=== PATIENT | female | born 1975 | race Caucasian/White ===

== ENCOUNTER 2017-01-04 21:47 | Emergency (ER) | payer BC ==
[2017-01-04] MEDS ORDERED: Ketorolac Tromethamine 30 MG/ML VIAL ONE (22:09)
[2017-01-04] MEDS ORDERED: Ondansetron HCl/PF 4 MG/2 ML Vial ONE (22:09)
[2017-01-04 22:38] LABS: #Basophils 0.1 thou/uL (0.0-0.2); #Eosinphils 0.2 thou/uL (0.0-0.7); #Lymphocytes 2.6 thou/uL (1.20-3.40); #Monocytes 0.5 thou/uL (0.11-0.59); #Neutrophils 5.6 thou/uL (1.40-6.50); %Basophils 0.9 % (0.0-1.0); %Eosinophils 2.7 % (0.0-10.0); %Lymphocytes 29.2 % (21.0-51.0); %Monocytes 5.2 % (0.0-10.0); Hematocrit 49.9 % (36.0-47.0); Mean Platelet Volume 7.3 fL (7.4-10.4); Red Blood Cell (RBC) Count 5.43 mill/uL (4.20-5.40)
[2017-01-04 22:46] LABS: ALT (SGPT) 34 U/L (8-55); AST (SGOT) 28 U/L (5-34); Alkaline Phosphatase 49 U/L (40-150); Anion Gap 15 mmol/L (10-20); BUN (Urea Nitrogen) 19 mg/dL (7.0-18.7); Bilirubin, Total 0.6 mg/dL (0.2-1.2); Calc. Creatinine Clearance 0 mL/min (70-130); Calcium 8.8 mg/dL (7.8-10.44); Carbon Dioxide 22 mmol/L (22-29); Chloride 109 mmol/L (98-107); Estimated GFR-MDRD 48; Globulin 2.9 g/dL (2.4-3.5); Protein, Total 6.7 g/dL (6.0-8.3)
[2017-01-04 23:41] LABS: Bilirubin Negative (Negative); Blood, Urine Small (Negative); Glucose, Urine (Dipstick) Negative (Negative); Ketone, Urine 15 mg/dL (Negative); Nitrite Negative (Negative); Protein, Urine (Dipstick) Negative (Neg-Trace); Urobilinogen 0.2 mg/dL (0.2-1.0)
[2017-01-04 23:45] LABS: Bacteria/HPF 1+ HPF (None Seen); Hyaline Casts/LPF 0-3 HYALINE CAST LPF (0-3 Hyaline); RBC/HPF 0-3 HPF (0-3); WBC/HPF 0-3 HPF (0-3)
[2017-01-05] MEDS ORDERED: Ondansetron HCl/PF 4 MG/2 ML Vial ONE (00:37)
--- NOTE | 2017-01-05 07:58 | CT ---
PRELIMINARY REPORT/[facility]/EMERGENCY AFTER HOURS PROCEDURE: EXAM: CT Abdomen and Pelvis Without Intravenous Contrast EXAM DATE/TIME: Exam ordered 01/05/2017 12:11 AM CLINICAL HISTORY: 41 years old, female; Pain; Abdominal pain; Flank; Right; Patient HX: Right flank and back pain for 2 weeks, hematuria. Hs of stone with litho and stent 15 years ago. Hs of tubal TECHNIQUE: Axial computed tomography images of the abdomen and pelvis without intravenous contrast. All CT scan s at this facility use one or more dose reduction techniques, viz.: automated exposure control; ma/k V adjustment per patient size (including targeted exams where dose is matched to indication; i.e. he ad); or iterative reconstruction technique. Coronal reformatted images were created and reviewed. COMPARISON: No relevant prior studies available. FINDINGS: Lower thorax: No acute findings. ABDOMEN: Liver: Unremarkable. Gallbladder and bile ducts: Unremarkable. No calcified stones. No ductal dilation. Pancreas: Unremarkable. No ductal dilation. Spleen: Unremarkable. No splenomegaly. Adrenals: Unremarkable. No mass. Kidneys and ureters: 7 mm obstructing stone in the proximal right ureter causing moderate obstructiv e uropathy. Stomach and bowel: Colonic diverticulosis. No diverticulitis. No obstruction. Appendix: Normal appendix. PELVIS: Bladder: Unremarkable. No stones. Reproductive: Unremarkable as visualized. ABDOMEN and PELVIS: Intraperitoneal space: Unremarkable. No free air. No significant fluid collection. Bones/joints: No acute fracture. No dislocation. Soft tissues: Unremarkable. Vasculature: Unremarkable. No abdominal aortic aneurysm. Lymph nodes: Unremarkable. No enlarged lymph nodes. IMPRESSION: 7 mm obstructing stone in the proximal right ureter causing moderate obstructive uropathy. Thank you for allowing us to participate in the care of your patient. Dictated and Authenticated by: Kings Castillo MD 01/05/2017 12:30 AM Central Time ([place] \T\ [place]) FINAL REPORT EMERGENT AFTER HOURS NONCONTRAST CT ABDOMEN AND PELVIS: DATE: 01/05/17. HISTORY: Intermittent back pain for 2 weeks. The patient complains of right flank and lower abdominal pain. IMPRESSION: 1. Partially obstructing 7 mm calculus proximal right ureter resulting in moderate right hydronephr osis. There is mild right perinephric stranding. 2. No left renal or ureteral calculus is present. 3. No CT evidence of appendicitis. 4. Prominent degenerative changes at the lumbosacral junction. 5. Findings are in agreement with the preliminary report by [facility]. POS: [facility]
== END 2017-01-05 02:34 | disposition home or self-care (01) ==
LOC: SCSER 21:47
DX: N13.2 Hydronephrosis with renal and ureteral calculous obstruction (principal); F32.9 Major depressive disorder, single episode, unspecified
CPT/HCPCS: 74176; 80053; 81003; 81015; 84703; 85025; 96361; 96374; 96375; 96376; J1885; J2270; J2405

== ENCOUNTER 2017-01-17 12:10 | Outpatient (CLI) | payer BC ==
[2017-01-17 13:47] LABS: Anion Gap 14 mmol/L (10-20); BUN (Urea Nitrogen) 16 mg/dL (7.0-18.7); Calc. Creatinine Clearance 0 mL/min (70-130); Calcium 8.7 mg/dL (7.8-10.44); Carbon Dioxide 24 mmol/L (22-29); Chloride 107 mmol/L (98-107); Estimated GFR-MDRD 62
--- NOTE | 2017-01-17 15:35 | RAD ---
TWO VIEW CHEST: History: Pre-operative evaluation. FINDINGS: Lungs are clear. Heart and mediastinum are unremarkable. Osseous structures are unremarkable. IMPRESSION: No acute finding. POS: [facility]
[2017-01-17 18:18] LABS: Bilirubin Negative (Negative); Blood, Urine Large (Negative); Glucose, Urine (Dipstick) Negative (Negative); Ketone, Urine Negative (Negative); Nitrite Negative (Negative); Protein, Urine (Dipstick) Negative (Neg-Trace); Urobilinogen 0.2 mg/dL (0.2-1.0)
[2017-01-17 18:21] LABS: Bacteria/HPF None Seen HPF (None Seen); Hyaline Casts/LPF 0-3 HYALINE CAST LPF (0-3 Hyaline); RBC/HPF 21-50 HPF (0-3); Squamous Epithelial 0-3 HPF (0-3); WBC/HPF 0-3 HPF (0-3)
--- NOTE | 2017-01-19 15:59 | EKG ---
Test Reason : Blood Pressure : / mmHG Vent. Rate : 061 BPM Atrial Rate : 061 BPM P-R Int : 148 ms QRS Dur : 078 ms QT Int : 426 ms P-R-T Axes : 036 056 004 degrees QTc Int : 428 ms Normal sinus rhythm with sinus arrhythmia Cannot rule out Inferior infarct , age undetermined Abnormal ECG No previous ECGs available Confirmed by DR. Zahida LU ([id number]) on 01/19/2017 3:59:16 PM Referred By: SANIA Confirmed By:DR. Zahida LU
== END 2017-01-17 12:11 | disposition home or self-care (01) ==
LOC: LABBT 12:10
PROVIDERS: ATTEND Urology
DX: Z87.440 Personal history of urinary (tract) infections (principal)
CPT/HCPCS: 71020; 80048; 81001; 93005; 93010

== ENCOUNTER 2017-06-26 15:32 | Outpatient (CLI) | payer BC ==
--- NOTE | 2017-06-26 15:58 | RAD ---
KUB: COMPARISON: 01/23/17. FINDINGS: A single view of the abdomen shows a nonobstructed bowel gas pattern. A phlebolith is seen in the pe lvis. No suspicious calcifications are seen over either kidney. IMPRESSION: Nonobstructed bowel gas pattern. POS: [facility]
== END 2017-06-26 15:33 | disposition home or self-care (01) ==
LOC: RAD 15:32
PROVIDERS: ATTEND Urology
DX: N13.2 Hydronephrosis with renal and ureteral calculous obstruction (principal)
CPT/HCPCS: 74018

== ENCOUNTER 2017-09-20 07:50 | Outpatient (CLI) | payer BC | END 2017-09-20 07:51 | disposition home or self-care (01) | LOC: BICMAMMO 07:50 | PROVIDERS: ATTEND Internal Medicine | DX: Z12.31 Encounter for screening mammogram for malignant neoplasm of breast (principal) | CPT/HCPCS: 77063; 77067 ==

== ENCOUNTER 2017-11-16 16:45 | Outpatient (CLI) | payer BC ==
--- NOTE | 2017-11-16 17:13 | RAD ---
PA AND LATERAL CHEST: Date: 11/16/17 INDICATION: Preop. COMPARISON: Prior exam dated 01/17/17. FINDINGS: Lungs are clear. Cardiomediastinal silhouette is within normal limits. No acute osseous abnormality i s evident. IMPRESSION: No acute cardiopulmonary abnormality. POS: [facility]
[2017-11-16 17:36] LABS: #Eosinphils 0.2 thou/uL (0.0-0.7); #Monocytes 0.4 thou/uL (0.11-0.59); #Neutrophils 3.5 thou/uL (1.40-6.50); %Basophils 0.4 % (0.0-1.0); %Eosinophils 3.2 % (0.0-10.0); %Lymphocytes 32.3 % (21.0-51.0); %Monocytes 6.5 % (0.0-10.0); %Neutrophils 57.7 % (42.0-75.0); Hemoglobin 14.1 g/dL (12.0-16.0); Mean Corpuscular HGB CONC 34.2 g/dL (32.0-36.0); Mean Corpuscular Hemoglobin 31.3 pg (27.0-31.0); Mean Corpuscular Volume 91.4 fL (78.0-98.0); Mean Platelet Volume 8.2 fL (7.4-10.4); Platelet Count 159 thou/uL (130-400); RBC Distribution Width 11.8 % (11.5-14.5); Red Blood Cell (RBC) Count 4.51 mill/uL (4.20-5.40)
[2017-11-16 17:44] LABS: BHCG - Serum Negative (NEGATIVE); Pregs Control Background? CLEAR/WHITE (CLR/WHITE); Pregs Control Bar Appear? YES (CONTROL BAR)
[2017-11-16 17:46] LABS: Hemoglobin A1c 5.1 % (4.0-6.0)
[2017-11-16 18:02] LABS: ALT (SGPT) 51 U/L (8-55); AST (SGOT) 42 U/L (5-34); Albumin 3.8 g/dL (3.5-5.0); Alkaline Phosphatase 46 U/L (40-150); Anion Gap 13 mmol/L (10-20); BUN (Urea Nitrogen) 23 mg/dL (7.0-18.7); Bilirubin, Direct 0.3 mg/dL (0.1-0.3); Bilirubin, Total 0.7 mg/dL (0.2-1.2); Calc. Creatinine Clearance 0 mL/min (70-130); Calcium 8.9 mg/dL (7.8-10.44); Carbon Dioxide 23 mmol/L (22-29); Chloride 105 mmol/L (98-107); Estimated GFR-MDRD 64; Glucose 81 mg/dL (70-105); Protein, Total 5.8 g/dL (6.0-8.3); Sodium 137 mmol/L (136-145)
--- NOTE | 2017-11-20 13:42 | EKG ---
Test Reason : Blood Pressure : / mmHG Vent. Rate : 067 BPM Atrial Rate : 067 BPM P-R Int : 142 ms QRS Dur : 078 ms QT Int : 416 ms P-R-T Axes : 037 054 024 degrees QTc Int : 439 ms Normal sinus rhythm Low voltage QRS Borderline ECG Confirmed by CATHERINE ENCARNACION ([id number]) on 11/20/2017 1:41:52 PM Referred By: AUREA Confirmed By:CATHERINE ENCARNACION
== END 2017-11-16 16:46 | disposition home or self-care (01) ==
LOC: LABBT 16:45
PROVIDERS: ATTEND Surgery
DX: Z01.818 Encounter for other preprocedural examination (principal); E66.01 Morbid (severe) obesity due to excess calories
CPT/HCPCS: 71046; 80053; 80076; 83036; 84703; 85025; 93005; 93010

== ENCOUNTER 2017-11-16 17:15 | Inpatient (IN) | payer BC ==
[2017-11-16 17:33] VITALS: BMI 41.8
[2017-11-22] MEDS ORDERED: Bupivacaine/Epinephrine 0.25% 30 ML VIAL ONE (06:24)
[2017-11-22] MEDS ORDERED: CEFAZOLIN/Water 2 GM/20 ML SYRINGE ONE (06:40)
[2017-11-22] MEDS ORDERED: Heparin 5,000 UNITS/ML VIAL ONE (06:40)
[2017-11-22] MEDS ORDERED: Midazolam HCl 2 mg/2 ml Vial ONE ×2 (07:18→07:20)
[2017-11-22] MEDS ORDERED: Fentanyl 100 MCG/2 ML VIAL ONE (07:20)
[2017-11-22] MEDS ORDERED: HYDROmorphone 2 MG/ML VIAL ONE (07:20)
[2017-11-22] MEDS ORDERED: diphenhydrAMINE 50 MG/ML VIAL IVP PRN ×2 (07:26→09:02)
[2017-11-22] MEDS ORDERED: Promethazine HCl 25 MG/ML VIAL SLOW IVP PRN (07:26)
[2017-11-22] MEDS ORDERED: HYDROmorphone 10 mg/100 ml CADD IVPB PRN (07:26)
[2017-11-22] MEDS ORDERED: Promethazine HCl 25 MG/ML VIAL IM PRN ×3 (07:26→09:02)
[2017-11-22] MEDS ORDERED: diphenhydrAMINE 25 MG CAP PO PRN (07:26)
[2017-11-22] MEDS ORDERED: HYDROmorphone 2 MG/ML VIAL SLOW IVP PRN (07:26)
[2017-11-22] MEDS ORDERED: Naloxone HCl 0.4 mg/ml Vial IV PRN (07:26)
[2017-11-22] MEDS ORDERED: diphenhydrAMINE 50 MG/ML VIAL IM PRN (07:26)
[2017-11-22] MEDS ORDERED: Zolpidem Tartrate 5 MG TAB PO PRN (07:26)
[2017-11-22] MEDS ORDERED: Meperidine HCl/PF 25 MG/ML VIAL SLOW IVP PRN (07:26)
[2017-11-22] MEDS ORDERED: Ondansetron HCl/PF 4 MG/2 ML Vial IVP PRN ×3 (07:26→09:02)
[2017-11-22] MEDS ORDERED: Communication Order-Pharmacy FS SCH (07:30)
[2017-11-22] MEDS ORDERED: Hydrocodone-Acetamin 15 ML UDCUP PO PRN (09:02)
[2017-11-22] MEDS ORDERED: hydrALAZINE 20 MG/ML VIAL SLOW IVP PRN (09:02)
[2017-11-22] MEDS ORDERED: Dextrose 50% Abboject 50 ML SYRINGE SLOW IVP PRN (09:02)
[2017-11-22] MEDS ORDERED: Dextrose 5% in Water 1,000 ML IV PRN (09:02)
[2017-11-22] MEDS ORDERED: D5 1/2 NS w/20 mEq KCL 1,000 ML ONE (09:33)
[2017-11-22] MEDS ORDERED: Ondansetron HCl/PF 4 MG/2 ML Vial ONE (09:55)
--- NOTE | 2017-11-22 10:50 | OP ---
DATE OF PROCEDURE: 11/22/2017 PREOPERATIVE DIAGNOSIS: Morbid obesity. SURGEON: Christiano Paulson M.D. PROCEDURE: Laparoscopic sleeve gastrectomy, esophagogastroscopy. INDICATIONS: This is a 42-year-old female, morbidly obese, who has attempted multiple weight loss pr ograms without success. FINDINGS: A 38 Setswana bougie used. PROCEDURE IN DETAIL: After informed consent was obtained, patient was taken to the operating room an d given general endotracheal anesthesia, placed in the supine position. The abdomen was prepped and draped in usual fashion. Local anesthesia infiltrated subcutaneously and deep. A 12 mm incision was performed approximately 8 inches below the xiphoid slightly to the left. Veress needle inserted. D rop test performed. Pneumoperitoneum was created to a volume of 2 liters of carbon dioxide. Utilizi ng a bladeless 12 mm trocar and 0 degree laparoscope, direct visual entry in the abdominal cavity was performed. Pneumoperitoneum was created to a pressure of 15 mmHg. Zero-degree laparoscope inserted . The patient placed in steep reverse Trendelenburg position. Nathansen liver retractor inserted. Left lobe of liver retracted superiorly. The pylorus identified. A 12 mm port placed on the right b eneath it and two 12s placed left subcostal. The omentum was taken off the greater curvature 5 cm fr om the pylorus utilizing the LigaSure. Short gastrics divided with the LigaSure. Left crura defined with the LigaSure. A 38-Setswana bougie inserted and directed into the antrum. Linear 60 mm green lo ad stapler used to divide the antrum to the bougie, gold load along the bougie, and a series of blues through the angle of His. Intraoperative endoscopy was performed. The video endoscope inserted und er direct vision and advanced into the sleeve. Staple line inspected. There was no bleeding. Stapl e line then tested by inflating the new stomach with pressurized air under water. There was no air l eak. Stomach decompressed. Scope removed. The remnant stomach removed from the abdomen through the left lateral port site. The fascia closed with 0 Vicryl suture and the GraNee needle. Trocars and retractors were removed. On the right side, there was also some bleeding, so again the fascia closed with 0 Vicryl suture and the GraNee needle. Hemostasis assured. Skin closed with interrupted 4-0 R apide. Steri-Strips applied. Sterile bandage applied. The patient tolerated the procedure well and was transferred to recovery in good condition. Sponge and needle count verified correct x2.
[2017-11-22] MEDS ORDERED: Acetaminophen 1,000 MG in Premix Bag 1 BAG IVPB SCH (12:00)
[2017-11-22] MEDS: CEFAZOLIN/Water 2 GM/20 ML SYRINGE SLOW IVP SCH ×2 (14:20→23:23)
[2017-11-22] MEDS: Ketorolac Tromethamine 30 MG/ML VIAL IVP SCH ×2 (14:20→21:16)
[2017-11-22] MEDS: Acetaminophen 1,000 MG in Premix Bag 1 BAG IVPB SCH ×2 (14:20→21:53)
[2017-11-22] MEDS: D5 1/2 NS w/20 mEq KCL 1,000 ML IV SCH ×2 (18:06→21:20)
[2017-11-23] MEDS: D5 1/2 NS w/20 mEq KCL 1,000 ML IV SCH ×3 (02:14→13:08)
[2017-11-23] MEDS: Ketorolac Tromethamine 30 MG/ML VIAL IVP SCH ×2 (02:21→08:17)
[2017-11-23 05:18] LABS: #Monocytes 0.5 thou/uL (0.11-0.59); #Neutrophils 11.3 thou/uL (1.40-6.50); %Basophils 0.1 % (0.0-1.0); %Lymphocytes 8.1 % (21.0-51.0); %Monocytes 3.6 % (0.0-10.0); %Neutrophils 88.2 % (42.0-75.0); Hemoglobin 13.3 g/dL (12.0-16.0); Mean Corpuscular HGB CONC 34.3 g/dL (32.0-36.0); Mean Corpuscular Hemoglobin 31.6 pg (27.0-31.0); Mean Corpuscular Volume 92.2 fL (78.0-98.0); Mean Platelet Volume 9.1 fL (7.4-10.4); Platelet Count 184 thou/uL (130-400); RBC Distribution Width 11.8 % (11.5-14.5); Red Blood Cell (RBC) Count 4.21 mill/uL (4.20-5.40); White Blood Cell (WBC) Count 12.9 thou/uL (4.8-10.8)
[2017-11-23 05:25] LABS: Anion Gap 11 mmol/L (10-20); BUN (Urea Nitrogen) 11 mg/dL (7.0-18.7); Calc. Creatinine Clearance 130 mL/min (70-130); Calcium 8.5 mg/dL (7.8-10.44); Carbon Dioxide 23 mmol/L (22-29); Chloride 109 mmol/L (98-107); Estimated GFR-MDRD 55; Glucose 131 mg/dL (70-105); Potassium 4.7 mmol/L (3.5-5.1); Sodium 138 mmol/L (136-145)
[2017-11-23] MEDS ORDERED: Enoxaparin Sodium 40 MG/0.4 ML SYRINGE SC SCH (06:00)
[2017-11-23] MEDS ORDERED: Hydrocodone-Acetamin 15 ML UDCUP PO PRN (08:16)
[2017-11-23] MEDS: Acetaminophen 1,000 MG in Premix Bag 1 BAG IVPB SCH (08:31)
[2017-11-23] MEDS ORDERED: Pantoprazole 40 MG VIAL IVP SCH (09:00)
--- NOTE | 2017-11-23 09:20 | RAD ---
UPPER GI SINGLE CONTRAST: Date: 11/23/17 HISTORY: 42-year-old female, recent status post gastric bypass and vertical sleeve. TECHNIQUE/FINDINGS: Fluoroscopy time: 0.4 minutes. Dose: 40.22 mGy*cm^2. The patient swallowed 15 mL Gastrografin orally in the upright position. Contrast media passed readil y through the distal esophagus and into the postoperative stomach, with emptying into the duodenum. N o evidence for extravasation. IMPRESSION: No obstruction or extravasation. POS: [facility]
[2017-11-23 11:22] VITALS: BP 99/63; TEMP 98.3
--- NOTE | 2017-11-23 20:22 | DIS ---
DISCHARGE DIAGNOSIS: Morbid obesity. PROCEDURES DURING ADMISSION: Laparoscopic sleeve gastrectomy, intraoperative esophagogastroscopy, po stoperative Gastrografin swallow. HOSPITAL COURSE: The patient was admitted, taken to the operating room where she underwent sleeve ga strectomy. Postoperatively, she has done well. The swallow was fine. She was started on liquid. S he is tolerating well. She is discharged home on hydrocodone and Zofran. She will follow up with me in 2 weeks.
[2017-11-24] MEDS ORDERED: Enoxaparin Sodium 40 MG/0.4 ML SYRINGE SC SCH (09:00)
== END 2017-11-23 13:20 | disposition home or self-care (01) | DRG 621 ==
LOC: SURG A 11-22 05:32
PROVIDERS: ADMIT Surgery; ATTEND Surgery
PROC: 0DB64Z3 Excision of Stomach, Percutaneous Endoscopic Approach, Vertical (ICD-10-PCS; principal; 2017-11-22)
DX: E66.01 Morbid (severe) obesity due to excess calories (principal); Z68.41 Body mass index [BMI] 40.0-44.9, adult
CPT/HCPCS: 36415; 74241; 80048; 85025; 88307; 88312; 94760; C9113; J0131; J1170; J1644; J1650; J1885; J2250; J2405; J2550; J3010

== ENCOUNTER 2017-12-04 18:02 | Day surgery (SDC) | payer BC ==
[2017-12-04] MEDS ORDERED: Multivit, Adult Inj 10 ML VIAL ONE (18:34)
== END 2017-12-04 22:00 | disposition home or self-care (01) ==
LOC: SCSER/OP 18:02
PROVIDERS: ATTEND Emergency Medicine
DX: K95.89 Other complications of other bariatric procedure (principal)

== ENCOUNTER → 2017-12-07 | Day surgery (SDC) | payer BC ==
[~2017-12-07] MED LIST: Multivit, Adult Inj 10 ML VIAL ONE
== END ==
LOC: SCSER/OP 16:56
PROVIDERS: ATTEND Surgery
DX: Z29.8 Encounter for other specified prophylactic measures (principal); Z98.84 Bariatric surgery status; Z79.899 Other long term (current) drug therapy

== ENCOUNTER → 2017-12-14 | Day surgery (SDC) | payer BC ==
[~2017-12-14] MED LIST changes: +Ondansetron HCl/PF 4 MG/2 ML Vial ONE
== END ==
LOC: SCSER/OP 17:28
PROVIDERS: ATTEND Surgery
DX: Z29.8 Encounter for other specified prophylactic measures (principal)
CPT/HCPCS: J2405

== ENCOUNTER 2017-12-16 15:55 | Inpatient (IN) | payer BC ==
[~2017-12-16 15:55] MED LIST changes: +ISOVUE-370 76%-LOCM 1 ML ONE; -Multivit, Adult Inj 10 ML VIAL ONE; -Ondansetron HCl/PF 4 MG/2 ML Vial ONE
[2017-12-16] MEDS ORDERED: Morphine 4 MG/ML VIAL ONE (16:42)
[2017-12-16] MEDS ORDERED: Ondansetron PF 4 MG/2 ML Vial ONE (16:42)
[2017-12-16 16:58] LABS: BHCG - Serum Negative (NEGATIVE); Pregs Control Background? CLEAR/WHITE (CLR/WHITE); Pregs Control Bar Appear? YES (CONTROL BAR)
[2017-12-16 17:02] LABS: #Basophils 0.1 thou/uL (0.0-0.2); #Eosinphils 0.1 thou/uL (0.0-0.7); #Lymphocytes 1.2 thou/uL (1.20-3.40); #Monocytes 0.8 thou/uL (0.11-0.59); #Neutrophils 5.8 thou/uL (1.40-6.50); %Basophils 0.9 % (0.0-1.0); %Eosinophils 1.5 % (0.0-10.0); %Lymphocytes 14.8 % (21.0-51.0); %Monocytes 9.6 % (0.0-10.0); %Neutrophils 73.3 % (42.0-75.0); Hemoglobin 14.3 g/dL (12.0-16.0); Mean Corpuscular HGB CONC 33.6 g/dL (32.0-36.0); Mean Corpuscular Hemoglobin 29.2 pg (27.0-31.0); Mean Platelet Volume 10.2 fL (7.4-10.4); PLT Morphology Comment Appears Adequate; Platelet Count 114 thou/uL (130-400); RBC Distribution Width 10.7 % (11.5-14.5); Red Blood Cell (RBC) Count 4.88 mill/uL (4.20-5.40)
[2017-12-16 17:08] LABS: ALT (SGPT) 29 U/L (8-55); AST (SGOT) 33 U/L (5-34); Alkaline Phosphatase 65 U/L (40-150); Anion Gap 18 mmol/L (10-20); BUN (Urea Nitrogen) 10 mg/dL (7.0-18.7); CK (CPK) 90 U/L (29-168); Calc. Creatinine Clearance 0 mL/min (70-130); Calcium 9.3 mg/dL (7.8-10.44); Carbon Dioxide 21 mmol/L (22-29); Chloride 106 mmol/L (98-107); Estimated GFR-MDRD 77; Globulin 3.3 g/dL (2.4-3.5); Glucose 101 mg/dL (70-105); Lipase 33 U/L (8-78); Potassium 3.7 mmol/L (3.5-5.1); Protein, Total 7.3 g/dL (6.0-8.3); Sodium 141 mmol/L (136-145)
--- NOTE | 2017-12-16 19:52 | CT ---
CT ABDOMEN WITH CONTRAST CT PELVIS WITH CONTRAST: DATE: 12-16-17 TIME: 6:44 p.m. HISTORY: [id number] with abdominal pain, nausea, and emesis. Status post vertical sleeve gastrectomy [address] Silvestre reported the findings by telephone to Dr. Issac Trejo of the [facility] Emergency Department at 6:52 p.m. on 12-16-17. The patient was scanned at the [facility] in [place] because the CT scanner is malfunctioning in [facility]. At 6:58 p.m., the Dr. Silvestre discussed the findings with Dr. Mead of the Emergency Department at the [facility], as the patient was en route to this ED. TECHNIQUE: IV injection of iodinated contrast media: 100 ml Isovue 370 Oral contrast media: PO Isovue COMPARISON: None. FINDINGS: There is no IV contrast material in the portal vein, superior mesenteric vein, or splenic vein. The b ranches of the superior mesenteric vein are also unopacified. There is edema at the trevor hepatis and mild edema posterior to the pancreas, and in the adjacent mesentery inferior to this. Mesenteric lym ph nodes centrally are enlarged. There is a suture line along narrowed gastric channel. The enhancement of the liver is heterogeneous, with large regions of moderately low attenuation, representing perfusion abnormality due to the port al vein thrombosis. There is splenomegaly. The bilateral kidneys, abdominal aorta, adrenals, urinary bladder and appendix are normal. The cecum is located superiorly in the right upper quadrant, and consequently the normal appendix is in Emmanuel's pouch rather than at the right lower quadrant. The body of the pancreas is mildly anteriorly displaced by the adjacent splenic vein thrombosis and enlargement. No definite galdino dence of acute pancreatitis. There is a small amount of free fluid in the cul-de-sac in the pelvis. N o colonic diverticulitis. No small bowel dilation. Lung bases are grossly clear. No pneumoperitoneum. IMPRESSION: 1. Acute portal vein thrombosis and occlusion, 2. with contiguous thrombosis and occlusion of the splenic vein and superior mesenteric vein, 3. and associated splenomegaly due to the resulting portal venous hypertension. 4. Associated perfusion abnormality of large regions of the liver. 5. Status post vertical sleeve gastrectomy JN R POS: [facility]
[2017-12-16] MEDS ORDERED: Enoxaparin Sodium 30 MG/0.3 ML SYRINGE ONE (19:58)
[2017-12-16] MEDS ORDERED: Enoxaparin Sodium 100 MG/ML SYRINGE ONE (19:58)
[2017-12-16 20:44] LABS: INR-International Normal Ratio 1.3; PTT 31.6 SEC (22.9-36.1); Prothrombin Time 16.2 SEC (12.0-14.7)
[2017-12-16 20:58] LABS: ALT (SGPT) 24 U/L (8-55); AST (SGOT) 26 U/L (5-34); Albumin 3.6 g/dL (3.5-5.0); Alkaline Phosphatase 62 U/L (40-150); Anion Gap 13 mmol/L (10-20); BUN (Urea Nitrogen) 10 mg/dL (7.0-18.7); Calc. Creatinine Clearance 0 mL/min (70-130); Calcium 8.7 mg/dL (7.8-10.44); Carbon Dioxide 24 mmol/L (22-29); Chloride 105 mmol/L (98-107); Estimated GFR-MDRD 78; Globulin 3.1 g/dL (2.4-3.5); Glucose 86 mg/dL (70-105); Lipase 31 U/L (8-78); Potassium 3.9 mmol/L (3.5-5.1); Protein, Total 6.7 g/dL (6.0-8.3); Sodium 138 mmol/L (136-145)
[2017-12-16 20:59] LABS: #Eosinphils 0.1 thou/uL (0.0-0.7); #Lymphocytes 1.4 thou/uL (1.20-3.40); #Monocytes 0.6 thou/uL (0.11-0.59); #Neutrophils 4.1 thou/uL (1.40-6.50); %Basophils 0.5 % (0.0-1.0); %Eosinophils 1.3 % (0.0-10.0); %Monocytes 9.7 % (0.0-10.0); %Neutrophils 65.5 % (42.0-75.0); Hemoglobin 13.5 g/dL (12.0-16.0); Mean Corpuscular HGB CONC 32.5 g/dL (32.0-36.0); Mean Corpuscular Volume 92.2 fL (78.0-98.0); Mean Platelet Volume 8.9 fL (7.4-10.4); Platelet Count 110 thou/uL (130-400); RBC Distribution Width 11.6 % (11.5-14.5); Red Blood Cell (RBC) Count 4.51 mill/uL (4.20-5.40); White Blood Cell (WBC) Count 6.2 thou/uL (4.8-10.8)
[2017-12-16] MEDS ORDERED: Ondansetron ODT 4 MG TAB SL PRN (21:57)
[2017-12-16] MEDS ORDERED: Ondansetron PF 4 MG/2 ML Vial IVP PRN (21:57)
[2017-12-16] MEDS: Fentanyl 100 MCG/2 ML VIAL SLOW IVP PRN (22:22)
[2017-12-16] MEDS: Sodium Chloride 0.45% 1,000 ML IV SCH (23:44)
[2017-12-17] MEDS: Sodium Chloride 0.45% 1,000 ML IV SCH ×2 (04:26→06:34)
[2017-12-17] MEDS: Fentanyl 100 MCG/2 ML VIAL SLOW IVP PRN (05:37)
[2017-12-17 05:41] LABS: Lactic Acid 0.6 mmol/L (0.5-2.2)
[2017-12-17 05:44] LABS: Bilirubin Moderate (Negative); Blood, Urine Negative (Negative); Clarity CLEAR (Clear); Glucose, Urine (Dipstick) Negative (Negative); Leukocyte Negative (Negative); Nitrite Negative (Negative); Protein, Urine (Dipstick) Trace mg/dL (Neg-Trace)
[2017-12-17 05:44] LABS: ALT (SGPT) 20 U/L (8-55); AST (SGOT) 21 U/L (5-34); Albumin 3.2 g/dL (3.5-5.0); Alkaline Phosphatase 56 U/L (40-150); Anion Gap 11 mmol/L (10-20); BUN (Urea Nitrogen) 9 mg/dL (7.0-18.7); Bilirubin, Total 0.9 mg/dL (0.2-1.2); Calc. Creatinine Clearance 153 mL/min (70-130); Calcium 8.4 mg/dL (7.8-10.44); Carbon Dioxide 24 mmol/L (22-29); Chloride 106 mmol/L (98-107); Estimated GFR-MDRD 78; Globulin 2.7 g/dL (2.4-3.5); Glucose 82 mg/dL (70-105); Potassium 3.4 mmol/L (3.5-5.1); Protein, Total 5.9 g/dL (6.0-8.3); Sodium 138 mmol/L (136-145)
[2017-12-17 05:48] LABS: #Eosinphils 0.2 thou/uL (0.0-0.7); #Lymphocytes 1.9 thou/uL (1.20-3.40); #Monocytes 0.7 thou/uL (0.11-0.59); #Neutrophils 2.5 thou/uL (1.40-6.50); %Basophils 0.7 % (0.0-1.0); %Lymphocytes 35.7 % (21.0-51.0); %Monocytes 12.4 % (0.0-10.0); %Neutrophils 48.1 % (42.0-75.0); Mean Corpuscular Hemoglobin 29.7 pg (27.0-31.0); Mean Corpuscular Volume 92.7 fL (78.0-98.0); Mean Platelet Volume 8.9 fL (7.4-10.4); Platelet Count 97 thou/uL (130-400); RBC Distribution Width 11.6 % (11.5-14.5); Red Blood Cell (RBC) Count 4.03 mill/uL (4.20-5.40); White Blood Cell (WBC) Count 5.3 thou/uL (4.8-10.8)
[2017-12-17 06:13] LABS: Specific Gravity, Urine 1.051 (1.002-1.036)
[2017-12-17] MEDS ORDERED: Enoxaparin Sodium 120 MG/0.8 ML SYRINGE SC SCH (09:00)
[2017-12-17] MEDS ORDERED: Fentanyl 100 MCG/2 ML VIAL SLOW IVP PRN (09:11)
[2017-12-17] MEDS ORDERED: fentaNYL Citrate/PF 2,000 MCG in Sodium Chloride 0.9% 60 ML IV PRN (09:11)
[2017-12-17] MEDS: D5 1/2 NS w/20 mEq KCL 1,000 ML IV SCH ×2 (09:30→15:59)
--- NOTE | 2017-12-17 10:29 | ULT ---
ULTRASOUND WITH DOPPLER DUPLEX VENOUS LOWER EXTREMITY LEFT: HISTORY: A 42-year-old female with left lower extremity edema. TECHNIQUE: Color flow Doppler, spectral waveform analysis of pulsed Doppler, and gerardo-scale imaging with garcia eron and augmentation, were used to evaluate the left common femoral, femoral, popliteal, posterior t ibial, and superficial femoral, veins; and the proximal portions of the profunda femoral and greater saphenous, veins. FINDINGS: There is normal compressibility, demonstration of blood flow by color Doppler and pulsed Doppler, and response to augmentation, in all interrogated veins. IMPRESSION: Negative. No deep vein thrombosis in the left lower extremity. jn[] POS: [facility]
--- NOTE | 2017-12-17 11:10 | HP ---
CHIEF COMPLAINT: Abdominal pain, nausea, vomiting. HISTORY OF PRESENT ILLNESS: This is a 42-year-old female, who underwent sleeve gastrectomy on 2017. She had quite a bit of dysphagia, early on and had to come in for fluids through the urgent ca re 3 times. She came back again this weekend complaining of increasing mid epigastric and mid abdomi nal pain. She was dry heaving. She has had trouble with swallowing. Pain has been getting worse. In the ER, a CT scan was obtained that showed acute portal vein thrombosis, splenic vein thrombosis, and mesenteric vein thrombosis. PAST MEDICAL HISTORY: Significant for history of kidney stones, chronic renal insufficiency related to those renal stones, degenerative joint disease, ADHD. PAST SURGICAL HISTORY: Past surgeries include bilateral tubal ligation. She had ESWL in 1998. She has had a right ureteroscopy in 2017. FAMILY HISTORY: Her father of suicide. Her mother is alive, but has a history of DVT post post . SOCIAL HISTORY: No tobacco, rare alcohol. She is . ALLERGIES: She has no known drug allergies. MEDICATIONS: Include an extended amphetamine and MiraLax. PHYSICAL EXAMINATION: VITAL SIGNS: Her temperature is 98.2, pulse 78, blood pressure 100/68, O2 sat 92%. GENERAL: She is awake, alert, does not appear to be in any distress at this time. HEENT: No jaundice. LUNGS: Clear. HEART: Regular rate and rhythm. ABDOMEN: Soft. She is tender in the epigastrium and mid abdomen. There are no peritoneal signs. S he has healing incisions from laparoscopy. EXTREMITIES: She reports some left leg swelling, which I am not sure I see much of that. No pitting . LABORATORY AND X-RAY FINDINGS: Her white count is 5.3, H and H 12 and 37, platelet count 97,000. He r PT is 16. INR 1.3. Her electrolytes show slightly low potassium of 3.4, total protein 5.9, albumi n 3.2. HCG negative. LFTs normal. Urinalysis did show some ketones and some bilirubin. She had a CT scan showing acute portal vein thrombosis, splenic vein thrombosis and SMV thrombosis. ASSESSMENT: Mesenteric venous thrombosis. PLAN: Full anticoagulation. Consult Hematology, PICC line placement, TPN, bowel rest. We will obta in an ultrasound of her leg to rule out deep venous thrombosis, and also plan a consult to Hematology to rule out hypercoagulopathy.
[2017-12-17] MEDS ORDERED: Warfarin Sodium 5 MG TAB PO SCH (11:30)
[2017-12-17] MEDS: Morphine 4 MG/ML VIAL SLOW IVP PRN ×2 (11:55→21:34)
[2017-12-17] MEDS: Ondansetron PF 4 MG/2 ML Vial IVP PRN ×2 (12:02→21:33)
--- NOTE | 2017-12-17 14:25 | SPC ---
SONOGRAPHIC GUIDED LEFT UPPER EXTREMITY PICC PLACEMENT: Date: 12/17/17 HISTORY: Infection. Need for long-term antibiotics. FINDINGS: After explaining the procedure and answering all questions, the left upper extremity was prepped and draped in the usual sterile fashion. Sterile technique, buffered local anesthesia, sonographic guidan ce, and a 22 gauge needle were used to carefully access the left brachial vein. Standard technique wa s then used to place the tip of a 5 Divehi dual lumen PICC so that the tip lies at the level of the r ight atrium. The catheter was flushed and secured externally. The patient tolerated the procedure wel l and was returned in unchanged condition. Fluoro Time: 0 seconds. IMPRESSION: Left upper extremity PICC is ready for use. POS: [facility]
[2017-12-17] MEDS: Multivitamins, Adult 10 ML, Multitrace-5 5 ML in D15W-AA 5% with Lytes 2,000 ML, Fat Em... IV SCH (14:40)
[2017-12-17] MEDS: Warfarin Sodium 5 MG TAB PO SCH (15:59)
[2017-12-17 18:43] LABS: INR-International Normal Ratio 1.2; PTT 38.5 SEC (22.9-36.1); Prothrombin Time 15.5 SEC (12.0-14.7)
[2017-12-17] MEDS: Enoxaparin Sodium 100 MG/ML SYRINGE SC SCH (21:33)
[2017-12-17] MEDS: Acetaminophen 1,000 MG in Premix Bag 1 BAG IVPB PRN (22:39)
[2017-12-17] MEDS: Scopolamine 1.5 mg/72 hour Patch TOP PRN (22:40)
--- NOTE | 2017-12-18 01:02 | CON ---
DATE OF CONSULTATION: 12/17/2017 REASON FOR CONSULTATION: Portal vein, splenic vein and mesenteric vein thrombosis. HISTORY OF PRESENT ILLNESS: A 42-year-old female status post sleeve gastrectomy on 018, presenting with worsening abdominal pain and found to have an acute portal vein thrombosis, sple raymundo vein thrombosis, mesenteric vein thrombosis. Since surgery, patient has had dysphagia and requir ed urgent care IV fluids 3 times. She presented to the ER with worsening abdominal pain and dry heav ing. Patient denies any previous history of blood clots, though does state her mother had a blood cl ot in the past. She denies any smoking, rare alcohol use. No hormone replacement therapy or oral co ntraceptives. 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 She denies any trouble with an y previous surgeries. She denies any fevers, any night sweats, any unexpected weight loss prior to s urgery, though she does have a history of worsening fatigue and diffuse myalgias over the past year. She has no history of bleeding. REVIEW OF SYSTEMS: Ten-point review of systems negative except as per HPI. PAST MEDICAL HISTORY: Chronic kidney stones, morbid obesity, osteoarthritis and ADHD. PAST SURGICAL HISTORY: Bilateral tubal ligation, ESWL in 1998, right ureteroscopy in 2017 for kidney stone. FAMILY HISTORY: DVT in her mother. SOCIAL HISTORY: No smoking, rare alcohol. ALLERGIES: No known drug allergies. MEDICATIONS: Reviewed. PHYSICAL EXAMINATION: VITAL SIGNS: Temperature 98.3, pulse 74, respirations 18, satting 96% on room air, blood pressure 10 2/67. GENERAL APPEARANCE: Obese patient, lying comfortably in bed, in no acute distress. HEENT: No palpable cervical lymphadenopathy. NECK: No JVD. CARDIOVASCULAR: Normal S1, S2. Regular rate and rhythm. No murmurs, rubs or gallops. RESPIRATIONS: Clear to auscultation bilaterally. No wheezes, rales or rhonchi. ABDOMEN: Obese, nondistended, soft, mild tenderness to palpation in the mid abdomen and epigastric a remi without guarding. EXTREMITIES: No lower extremity edema, erythema or tenderness to palpation. NEUROLOGIC: Nonfocal. PSYCHIATRIC: Awake, alert and oriented x3. LABORATORY DATA: White blood cell was 5.3, hemoglobin 12.0, platelet count on admission was 114 and is 97 today, PT 16.2, INR 1.3, PTT 31.6, BUN 9, creatinine 0.8. IMAGING DATA: CT abdomen and pelvis dated 12/16/2017 shows acute portal vein thrombosis and occlusio n with contiguous thrombosis and occlusion of the splenic vein and superior mesenteric vein and assoc iated splenomegaly due to resulting portal venous hypertension and associated perfusion abnormality o f large regions of the liver. ASSESSMENT AND PLAN: A 42-year-old female status post sleeve gastrectomy, presenting to [facility] ER with diffuse abdominal pain and found to have portal vein, splenic vein and mesenteric vein thro mboses. Patient's only risk factor is for blood clots is her recent surgery; however, she is pretty and active at baseline, sitting the majority of the day, is not active as per patient history. Sylvie ashley has a family history of a blood clot in her mother. Patient does not smoke or take OCP s. She has no history of B symptoms other than worsening fatigue over the last year. Her fatigue is likely multifactorial. She has no history of autoimmune disease, but there is a family history of l upus. She denies any current bleeding. She was begun on Lovenox and is currently on warfarin. Sple raymundo vein thromboses are much less common than DVTs in the legs or in the lungs and these raise suspic ion for a myeloproliferative neoplasm or PNH or inherited clotting disorders. We will check for anti phospholipid antibody syndrome, Baldomero JAK2 and BCR-ABL to rule out myeloproliferative neoplasms and also inflow cytometry to evaluate for CD 55 and CD 59 to rule out PNH. I will follow these lab resul ts up. It would likely not be back until after the patient's discharge, so I will follow her up in t he clinic. Her thrombocytopenia is likely secondary to her splenomegaly and hypersplenism due to por marge hypertension. Continue to monitor and if platelets drop less than 50, we would recommend platele t transfusion in order to continue anticoagulation due to clot burden. We will peripherally follow i n until lab results return.
[2017-12-18] MEDS: D5 1/2 NS w/20 mEq KCL 1,000 ML IV SCH ×3 (02:15→17:25)
[2017-12-18] MEDS: Acetaminophen 1,000 MG in Premix Bag 1 BAG IVPB PRN (06:05)
[2017-12-18] MEDS: Ondansetron PF 4 MG/2 ML Vial IVP PRN ×2 (06:18→20:09)
[2017-12-18 06:39] LABS: #Eosinphils 0.2 thou/uL (0.0-0.7); #Lymphocytes 1.5 thou/uL (1.20-3.40); #Monocytes 0.7 thou/uL (0.11-0.59); #Neutrophils 2.7 thou/uL (1.40-6.50); %Basophils 0.4 % (0.0-1.0); %Eosinophils 3.9 % (0.0-10.0); %Lymphocytes 29.3 % (21.0-51.0); %Monocytes 13.1 % (0.0-10.0); %Neutrophils 53.3 % (42.0-75.0); Hemoglobin 12.3 g/dL (12.0-16.0); Mean Corpuscular HGB CONC 32.8 g/dL (32.0-36.0); Mean Corpuscular Volume 91.5 fL (78.0-98.0); Mean Platelet Volume 8.5 fL (7.4-10.4); Platelet Count 102 thou/uL (130-400); RBC Distribution Width 11.5 % (11.5-14.5); Red Blood Cell (RBC) Count 4.09 mill/uL (4.20-5.40); White Blood Cell (WBC) Count 5.1 thou/uL (4.8-10.8)
[2017-12-18 06:51] LABS: ALT (SGPT) 18 U/L (8-55); AST (SGOT) 18 U/L (5-34); Albumin 3.2 g/dL (3.5-5.0); Alkaline Phosphatase 57 U/L (40-150); Anion Gap 9 mmol/L (10-20); BUN (Urea Nitrogen) 9 mg/dL (7.0-18.7); Bilirubin, Total 0.7 mg/dL (0.2-1.2); Calc. Creatinine Clearance 161 mL/min (70-130); Calcium 8.4 mg/dL (7.8-10.44); Carbon Dioxide 30 mmol/L (22-29); Cardiac Risk 7.4 (Less than 4.5); Chloride 105 mmol/L (98-107); Cholesterol 134 mg/dl (< 200 Desired); Estimated GFR-MDRD 83; Globulin 2.8 g/dL (2.4-3.5); Glucose 191 mg/dL (70-105); HDL Cholesterol 18 mg/dL (>60 Neg Risk); LDL Cholesterol, Calculated 93 mg/dL; Phosphorus 3.2 mg/dL (2.3-4.7); Potassium 3.9 mmol/L (3.5-5.1); Sodium 140 mmol/L (136-145); Triglycerides 116 mg/dL (Less than 150)
[2017-12-18] MEDS: Enoxaparin Sodium 100 MG/ML SYRINGE SC SCH ×2 (08:49→20:09)
[2017-12-18] MEDS: Morphine 4 MG/ML VIAL SLOW IVP PRN (08:54)
[2017-12-18] MEDS ORDERED: Heparin 1,000 UNITS/ML VIAL ONE (10:13)
[2017-12-18 11:46] LABS: DRVVT Confirm 41.3; DRVVT Ratio 0.9 Ratio (1.2 or Less); DRVVT Screen 38.3 SEC (20-50); Factor VIII Test 367.1 % ACTIVE (56-157)
[2017-12-18 12:16] LABS: HEX PHOS LA Tube 1 68.9 SEC; Hexagonal Phospholipid Neut 7.9 SEC (0-8.0)
--- NOTE | 2017-12-18 12:31 | PRG ---
DATE OF SERVICE: 12/18/2017 SUBJECTIVE: The patient is still having intermittent bouts of nausea and pain. She feels a little b ivonne right now. She is having bowel movements, passing flatus. PHYSICAL EXAMINATION: VITAL SIGNS: Her temperature is 97.9, pulse 75, blood pressure 99/67. GENERAL: She looks okay. She does not appear to be in any distress at this time, there is no jaundi ce. LUNGS: Clear. HEART: Regular rate and rhythm. ABDOMEN: Soft, really no significant tenderness, maybe mildly in the left flank. LABORATORY DATA: Her white count is 5.1, H&H 12 and 37, platelet count 102, so her platelets are up. Her INR has not bumped up yet, it is still 1.2, PT is 15.5 and PTT of 38.5. ASSESSMENT: Mesenteric venous thrombosis. PLAN: Continue TPN, continue anticoagulation. We will give additional Coumadin, continue TPN. We w ill have to work towards home TPN.
[2017-12-18] MEDS ORDERED: Pharmacy to MANAGE TPN ELECTROLYTES IVPB PRN (12:53)
[2017-12-18] MEDS ORDERED: Sodium Acetate 2 mEq/ml 40 MEQ, Sodium Chloride 30 MEQ, Potassium Chloride 20 MEQ, Pota... IV SCH (14:00)
[2017-12-18] MEDS: Multivitamins, Adult 10 ML, Multitrace-5 5 ML in D15W-AA 5% with Lytes 2,000 ML, Fat Em... IV SCH (14:48)
[2017-12-18 15:19] LABS: INR-International Normal Ratio 1.2; Prothrombin Time 15.2 SEC (12.0-14.7)
[2017-12-18 15:20] LABS: PTT 40.6 SEC (22.9-36.1)
[2017-12-18 16:19] LABS: Ref Lab Test Ordered BCR-ABL; Reference Lab Name LABCORP
[2017-12-18 16:24] LABS: Ref Lab Test Ordered JAK2 REFLEX
[2017-12-18 16:25] LABS: Ref Lab Test Ordered PLINK
[2017-12-18] MEDS: Warfarin Sodium 5 MG TAB PO SCH (17:24)
[2017-12-18] MEDS: Hydrocodone-Acetamin 15 ML UDCUP PO PRN (20:09)
[2017-12-19] MEDS: Ketorolac Tromethamine 30 MG/ML VIAL IVP PRN (06:06)
[2017-12-19] MEDS: D5 1/2 NS w/20 mEq KCL 1,000 ML IV SCH ×3 (06:09→17:54)
[2017-12-19 06:22] LABS: ALT (SGPT) 13 U/L (8-55); AST (SGOT) 18 U/L (5-34); Albumin 3.1 g/dL (3.5-5.0); Alkaline Phosphatase 56 U/L (40-150); Anion Gap 8 mmol/L (10-20); BUN (Urea Nitrogen) 10 mg/dL (7.0-18.7); Bilirubin, Total 0.6 mg/dL (0.2-1.2); Calc. Creatinine Clearance 168 mL/min (70-130); Calcium 8.9 mg/dL (7.8-10.44); Carbon Dioxide 29 mmol/L (22-29); Chloride 107 mmol/L (98-107); Estimated GFR-MDRD 87; Globulin 3.1 g/dL (2.4-3.5); Glucose 103 mg/dL (70-105); Phosphorus 2.8 mg/dL (2.3-4.7); Potassium 3.4 mmol/L (3.5-5.1); Protein, Total 6.2 g/dL (6.0-8.3); Sodium 141 mmol/L (136-145)
[2017-12-19 06:31] LABS: #Eosinphils 0.2 thou/uL (0.0-0.7); #Lymphocytes 1.4 thou/uL (1.20-3.40); #Monocytes 0.5 thou/uL (0.11-0.59); #Neutrophils 2.5 thou/uL (1.40-6.50); %Basophils 0.4 % (0.0-1.0); %Eosinophils 4.4 % (0.0-10.0); %Lymphocytes 30.5 % (21.0-51.0); %Monocytes 11.2 % (0.0-10.0); %Neutrophils 53.5 % (42.0-75.0); Hemoglobin 12.9 g/dL (12.0-16.0); Mean Corpuscular HGB CONC 32.6 g/dL (32.0-36.0); Mean Corpuscular Hemoglobin 29.8 pg (27.0-31.0); Mean Corpuscular Volume 91.5 fL (78.0-98.0); Mean Platelet Volume 8.6 fL (7.4-10.4); Platelet Count 103 thou/uL (130-400); RBC Distribution Width 11.6 % (11.5-14.5); Red Blood Cell (RBC) Count 4.33 mill/uL (4.20-5.40); White Blood Cell (WBC) Count 4.6 thou/uL (4.8-10.8)
[2017-12-19 06:42] LABS: INR-International Normal Ratio 1.1; Prothrombin Time 14.6 SEC (12.0-14.7)
[2017-12-19] MEDS: Enoxaparin Sodium 100 MG/ML SYRINGE SC SCH ×2 (08:34→20:08)
[2017-12-19] MEDS: Ondansetron PF 4 MG/2 ML Vial IVP PRN ×2 (08:44→22:47)
[2017-12-19] MEDS: Morphine 4 MG/ML VIAL SLOW IVP PRN (08:44)
--- NOTE | 2017-12-19 13:09 | PQF ---
CLINICAL DOCUMENTATION IMPROVEMENT CLARIFICATION FORM: ICD-10 Updated PLEASE DO AN ADDENDUM TO THE PROGRESS NOTE WITH ANY DOCUMENTATION UPDATES OR ADDITIONS AND CARRY THROUGH TO DC SUMMARY. THANK YOU. DATE: 12/19 ATTN: DR. EMIL VILLAR Please exercise your independent, professional judgment in responding to the clarification form. Clinical indicators are provided on the bottom of this form for your review. Please check appropriate box(s): [ ] MESENTERIC VENOUS THROMBOSIS is a complication of current/recent surgery [ ] MESENTERIC VENOUS THROMBOSIS is not a complication of current/recent surgery [ ] Other diagnosis [ ] Unable to determine CLINICAL INDICATORS - SIGNS / SYMPTOMS / LABS PHYSICIAN H&P DOCUMENTATION 12/16: HX OF PRESENT ILLNESS: 42 YR OLD FEMALE, WHO UNDERWENT SLEEVE GASTRECTOMY ON 11/22/2017. SHE HAD QUITE A BIT OF DYSPHAGIA , EARLY ON AND HAD TO COME IN FOR FLUIDS THOUGH URGENT CARE 3 TIMES. SHE CAME BACK AGAIN THIS WEEKEND C/O MID EPIGASTRIC & MID ABDOMINAL PAIN. ...IN THE ER, A CT SCAN WAS OBTAINED THAT SHOWED ACUTE PORTAL VEIN THROMBOSIS, SPLENIC VEIN THROMBOSIS, & MESENTERIC VEIN THROMBOSIS ONCOLOGY CONSULT DOCUMENTATION 12/17: ASSESSMENT & PLAN: ...FEMALE S/P SLEEVE GASTRECTOMY, PRESENTING TO THE ER W/DIFFUSE ABDOMINAL PAIN & FOUND TO HAVE PORTAL VEIN, SPLENIC VEIN & MESENTERIC VEIN THROMBOSES. PATIENT'S ONLY RISK FACTOR FOR BLOOD CLOTS IS HER RECENT SURGERY; HOWEVER, SHE IS PRETTY INACTIVE AT BASELINE, SITTING THE MAJORITY OF THE DAY, IS NOT ACTIVE PER PATIENT HX. ...SHE HAS NO HX OF AUTOIMMUNE DISEASE BUT THERE IS A FAMILY HX OF LUPUS. SPLENIC VEIN THROMBOSES ARE MUCH LESS COMMON THAT DVT'S IN THE LEGS OR LUNGS & THESE RAISE SUSPICION FOR A MYELOPROLIFERATIVE NEOPLASM, PNH OR INHERITED CLOTTING DISORDERS. RISK FACTOR: RECENT SLEEVE GASTRECTOMY (11/22/17) INACTIVITY TREATMENT: ONCOLOGY CONSULT SQ LOVENOX (12/17 - PRESENT) COUMADIN (12/18 - PRESENT) (This form is maintained as a part of the permanent medical record) 2014 [employer]. All Rights Reserved Kenia Villatoro RN, BSN [email or web address] Office: [phone] [facility]
[2017-12-19] MEDS: Sodium Acetate 2 mEq/ml 40 MEQ, Sodium Chloride 30 MEQ, Potassium Chloride 20 MEQ, Pota... IV SCH (15:23)
[2017-12-19 16:19] LABS: Cardiolipin IgA Ab 2.9 APL-U/mL (<14 Negative); Cardiolipin IgG Ab 0.7 GPL-U/mL (<10 Negative); Cardiolipin IgM Ab 6.3 MPL-U/mL (<10 Negative); EliA APS New Method **** NEW METHOD ****; beta-2-Glycoprotein I IgG Ab Less than 0.6 U/mL (<7 Negative); beta-2-Glycoprotein I IgM Abs Less than 2.9 U/mL (<7 Negative)
[2017-12-19 16:25] LABS: Cardiolipin IgG Ab 1.1 GPL-U/mL (<10 Negative); EliA APS New Method **** NEW METHOD ****; beta-2-Glycoprotein I IgG Ab Less than 0.6 U/mL (<7 Negative)
--- NOTE | 2017-12-19 16:34 | PRG ---
DATE OF SERVICE: 12/19/2017 SUBJECTIVE: The patient still have a quite a bit of pain, described as 6-7/10 in the epigastrium, so me nausea. She is on TPN. She has taken a few ice chips, but not many. No vomiting. PHYSICAL EXAMINATION: VITAL SIGNS: Temperature is 98.2, pulse 87, blood pressure 100/68. GENERAL: She looks good. ABDOMEN: Soft, really no significant tenderness. LABORATORY: Her PT is 14 so it actually got worse, it was better on the Coumadin. I talked to the ematologist about that. ASSESSMENT: Mesenteric venous thrombosis. PLAN: We will try Xarelto and stop the Coumadin and when we get her pain controlled with medicine, s he can do at home as well as the home TPN arranged, we will send her home Marlee.
[2017-12-19] MEDS ORDERED: Rivaroxaban 10 MG TAB PO SCH (18:00)
[2017-12-19] MEDS: Rivaroxaban 15 MG TAB PO SCH (20:08)
[2017-12-19] MEDS: Hydrocodone-Acetamin 15 ML UDCUP PO PRN (22:47)
[2017-12-20 06:10] LABS: INR-International Normal Ratio 1.4; Prothrombin Time 16.9 SEC (12.0-14.7)
[2017-12-20 06:22] LABS: ALT (SGPT) 19 U/L (8-55); AST (SGOT) 29 U/L (5-34); Albumin 3.1 g/dL (3.5-5.0); Alkaline Phosphatase 56 U/L (40-150); Anion Gap 9 mmol/L (10-20); BUN (Urea Nitrogen) 16 mg/dL (7.0-18.7); Bilirubin, Total 0.6 mg/dL (0.2-1.2); Calc. Creatinine Clearance 175 mL/min (70-130); Calcium 8.6 mg/dL (7.8-10.44); Carbon Dioxide 28 mmol/L (22-29); Chloride 107 mmol/L (98-107); Estimated GFR-MDRD Greater than 90; Globulin 2.9 g/dL (2.4-3.5); Glucose 86 mg/dL (70-105); Magnesium 2.2 mg/dL (1.6-2.6); Phosphorus 3.5 mg/dL (2.3-4.7); Potassium 3.7 mmol/L (3.5-5.1); Sodium 140 mmol/L (136-145)
[2017-12-20] MEDS: D5 1/2 NS w/20 mEq KCL 1,000 ML IV SCH ×3 (06:45→18:44)
--- NOTE | 2017-12-20 08:32 | PRG ---
DATE OF SERVICE: 12/20/2017 SUBJECTIVE: The patient reports that she is feeling much better this morning. Pain is better. She has been chewing ice and it is going down fine. OBJECTIVE: VITAL SIGNS: Temperature is 98, pulse 80, blood pressure 106/71. GENERAL: She looks better. ABDOMEN: Soft, nondistended and nontender. ASSESSMENT: Improved. PLAN: We will try some bariatric clear liquid sips today.
[2017-12-20] MEDS: Rivaroxaban 15 MG TAB PO SCH ×2 (09:44→20:24)
[2017-12-20] MEDS ORDERED: ISOVUE-370 76%-LOCM 1 ML ONE (12:38)
[2017-12-20] MEDS: Sodium Acetate 2 mEq/ml 40 MEQ, Sodium Chloride 30 MEQ, Potassium Chloride 20 MEQ, Pota... IV SCH (14:21)
[2017-12-20] MEDS: Ketorolac Tromethamine 30 MG/ML VIAL IVP PRN (16:42)
[2017-12-20] MEDS: Ondansetron PF 4 MG/2 ML Vial IVP PRN (16:42)
[2017-12-20 22:50] LABS: #Basophils 0.1 thou/uL (0.0-0.2); #Eosinphils 0.6 thou/uL (0.0-0.7); #Lymphocytes 5.1 thou/uL (1.20-3.40); #Neutrophils 5.8 thou/uL (1.40-6.50); %Basophils 0.6 % (0.0-1.0); %Eosinophils 4.5 % (0.0-10.0); %Lymphocytes 40.7 % (21.0-51.0); %Neutrophils 46.2 % (42.0-75.0); Hemoglobin 13.4 g/dL (12.0-16.0); Mean Corpuscular Hemoglobin 29.5 pg (27.0-31.0); Mean Corpuscular Volume 92.2 fL (78.0-98.0); Mean Platelet Volume 8.7 fL (7.4-10.4); Platelet Count 206 thou/uL (130-400); Red Blood Cell (RBC) Count 4.55 mill/uL (4.20-5.40); White Blood Cell (WBC) Count 12.5 thou/uL (4.8-10.8)
[2017-12-20 23:12] LABS: Anion Gap 12 mmol/L (10-20); BUN (Urea Nitrogen) 17 mg/dL (7.0-18.7); Calc. Creatinine Clearance 161 mL/min (70-130); Calcium 8.7 mg/dL (7.8-10.44); Carbon Dioxide 21 mmol/L (22-29); Chloride 108 mmol/L (98-107); Estimated GFR-MDRD 83; Glucose 147 mg/dL (70-105); Magnesium 2.1 mg/dL (1.6-2.6); Phosphorus 2.6 mg/dL (2.3-4.7); Potassium 3.8 mmol/L (3.5-5.1); Sodium 137 mmol/L (136-145)
[2017-12-20] MEDS ORDERED: Sodium Chloride 0.9% 1,000 ML IV SCH (23:45)
[2017-12-20] MEDS ORDERED: Sodium Chloride 0.9% 3,000 ML IV SCH (23:45)
[2017-12-20 23:57] LABS: CKMB 0.9 ng/mL (0-6.6); Troponin I Less than 0.010 ng/mL (< 0.028)
--- NOTE | 2017-12-21 01:19 | PRG ---
DATE OF SERVICE: 12/20/2017 This evening, she reports that she got up from sitting and felt sudden severe lower abdominal pain. She felt faint and went to the floor. The nurse caught her. She continued to complain of severe brandon n. When they were able to check her vital signs, her blood pressure dropped to 80 systolic. They ca lled a code and transferred her down to the MICU. Here, she has a heart rate of 96 and her blood pre ssure is 120/70. She is awake. She still has some discomfort. She is reported passing flatus. She is not having any significant nausea. Her abdomen is soft, nondistended, really no significant tend erness. LABORATORY DATA: Her white count is 12.5, H and H 13 and 41, platelet count 206. Her electrolytes s how an elevated glucose at 147. Her CO2 is 21. PT is 17. ASSESSMENT: New acute abdominal pain. PLAN: We will repeat CT scan, give a fluid bolus, add Protonix. Continue close observation in the i ntermediate care unit.
[2017-12-21 03:19] LABS: INR-International Normal Ratio 1.8; Prothrombin Time 20.6 SEC (12.0-14.7)
[2017-12-21 03:28] LABS: Lactic Acid 1.6 mmol/L (0.5-2.2)
[2017-12-21 03:42] LABS: ALT (SGPT) 20 U/L (8-55); AST (SGOT) 33 U/L (5-34); Albumin 2.8 g/dL (3.5-5.0); Alkaline Phosphatase 52 U/L (40-150); Anion Gap 10 mmol/L (10-20); BUN (Urea Nitrogen) 17 mg/dL (7.0-18.7); Bilirubin, Total 0.6 mg/dL (0.2-1.2); Calc. Creatinine Clearance 183 mL/min (70-130); Calcium 8.1 mg/dL (7.8-10.44); Carbon Dioxide 22 mmol/L (22-29); Chloride 110 mmol/L (98-107); Estimated GFR-MDRD Greater than 90; Globulin 2.6 g/dL (2.4-3.5); Glucose 142 mg/dL (70-105); Magnesium 1.8 mg/dL (1.6-2.6); Phosphorus 1.7 mg/dL (2.3-4.7); Potassium 4.1 mmol/L (3.5-5.1); Protein, Total 5.4 g/dL (6.0-8.3); Sodium 138 mmol/L (136-145)
[2017-12-21] MEDS ORDERED: Sodium Phosphate 10 MMOL in Sodium Chloride 0.9% 250 ML 250 ML IVPB SCH (04:30)
[2017-12-21] MEDS: D5 1/2 NS w/20 mEq KCL 1,000 ML IV SCH ×3 (05:14→17:15)
[2017-12-21 07:09] LABS: #Eosinphils 0.1 thou/uL (0.0-0.7); #Lymphocytes 1.2 thou/uL (1.20-3.40); #Monocytes 0.6 thou/uL (0.11-0.59); #Neutrophils 7.2 thou/uL (1.40-6.50); %Basophils 0.1 % (0.0-1.0); %Eosinophils 1.2 % (0.0-10.0); %Lymphocytes 13.6 % (21.0-51.0); %Monocytes 6.5 % (0.0-10.0); %Neutrophils 78.7 % (42.0-75.0); Mean Corpuscular HGB CONC 32.5 g/dL (32.0-36.0); Mean Corpuscular Volume 92.1 fL (78.0-98.0); Mean Platelet Volume 9.1 fL (7.4-10.4); Platelet Count 159 thou/uL (130-400); Red Blood Cell (RBC) Count 3.67 mill/uL (4.20-5.40); White Blood Cell (WBC) Count 9.2 thou/uL (4.8-10.8)
--- NOTE | 2017-12-21 07:35 | CT ---
ABDOMEN AND PELVIS CT WITH CONTRAST: Date: 12/20/17 Reference made to 12/16/17 exam. INDICATION: Acute abdominal pain. History of venous thrombosis. FINDINGS: There has been development of a moderate volume of perihepatic and perisplenic free fluid which is hy perdense, which indicates sanguinous fluid. There is prominent distention of the portal vein confluen ce, as well as the splenic vein and superior mesenteric vein and its subsequent branches compatible w ith extensive, expansile venous thrombosis. There is distention of the gallbladder and evidence of pe riportal edema. There is also edema extending along the hilar structures of the spleen. Central abdom inal edema is also present. There is redemonstration of gastric surgery. A mild degree of residual co ntrast remains within the colon and there are colonic diverticula. No pathologic dilatation of the un opacified small bowel. No disseminated free air. There is ascites descending along each paracolic gut ter with a moderate volume of free pelvic fluid, which encases the gynecologic structures. The abdomi nal aorta is nonaneurysmal. There is atelectasis of the visualized lung bases. No additional signific ant interval change. IMPRESSION: 1. Redemonstration of extensive intra-abdominal venous thrombosis involving the portal vein confluen ce, along with the superior mesenteric vein and distal venous branches, and the splenic vein. 2. There has been development of moderate volume of high density free fluid of the perihepatic and p erisplenic regions which favors sanguinous fluid. A punctate density adjacent the spleen may relate t o a small acute bleeding component. Additional scattered areas of abdominal/pelvic ascites are presen t. 3. Periportal edema of the liver and edema of the hilar structures of the spleen. There is subtle he terogeneous enhancement of the liver, likely due to the extensive degree of thrombosis, and therefore , the possibility of developing hepatic infarction should be excluded clinically. Correlate with live r function enzymes. Telephone call with findings placed to patient's surgeon, Dr. Christiano Paulson, at the time of dictation, 0 055 hours on 12/21/17. CODE CR. POS: [facility]
--- NOTE | 2017-12-21 08:52 | CON ---
DATE OF CONSULTATION: 12/21/2017 CONSULTING PHYSICIAN: Dr. Paulson REASON FOR CONSULTATION: IMCU placement. HISTORY OF PRESENT ILLNESS: Ms. Mckinnon is a pleasant 42-year-old female who had a sleeve gastrectom y back on 11/22/2017. Postoperatively, she had abdominal pain and dysphasia. She came back into the hospital on 12/17/2017 with mid epigastric pain. She had a CT of the abdomen performed which showed portal vein thrombosis, splenic vein thrombosis and mesenteric vein thrombosis. She has since been started on Xarelto. Last night the patient had difficulty with worsening abdominal pain. She got to the bathroom and felt faint and went to the floor. She had a repeat CT of the abdomen which I do no t think showed any changes compared to the previous scan except for some free fluid around the liver and spleen. She did not have any type of scanning done of her pulmonary arteries last night. She fuentes s had a Doppler scan of the lower extremities that did not show any evidence of clotting on 8. PAST MEDICAL HISTORY: 1. Nephrolithiasis. 2. Chronic renal insufficiency, related nephrolithiasis 3. Degenerative joint disease. 4. Obesity. 5. ADHD. PAST SURGICAL HISTORY: 1. Recent sleeve gastrectomy 2. Bilateral tubal ligation. 3. Right ureteroscopy. FAMILY MEDICAL HISTORY: Remarkable for blood clot in the patient's mother. SOCIAL HISTORY: Nonsmoker. Very rarely consumes alcohol. . ALLERGIES: None. CURRENT MEDICATIONS: Hydrocodone, Toradol, morphine, Zofran, Protonix, Phenergan, Xarelto, transderm al scopolamine patch, TPN. REVIEW OF SYSTEMS: Otherwise, negative except for that mentioned above. PHYSICAL EXAMINATION: VITAL SIGNS: Temperature 99.0, pulse 88, respirations 18, O2 sat 94% on room air, blood pressure 130 /71. GENERAL: The patient is awake, alert, and in no overt distress. HEENT: Pupils react. Sclerae icteric. Oropharynx clear. NECK: No adenopathy or JVD. LUNGS: Clear to auscultation without wheezing or rhonchi. CARDIOVASCULAR: S1, S2, slightly tachycardic. No murmur. ABDOMEN: Soft, tenderness, no rebound. EXTREMITIES: No clubbing, cyanosis, or edema. LABORATORY DATA: White blood cell count 9.2, hematocrit 33.8, platelet count 159. INR 1.8. Sodium 138, potassium 4.1, chloride 100, CO2 22, BUN 17, creatinine 0.6, glucose 142, AST 33, ALT 20. ASSESSMENT: 1. Mesenteric, portal vein, and splenic vein thrombosis. 2. Rule out pulmonary embolism. 3. Recent sleeve surgery. PLAN: She had a contrasted scan obtained earlier this morning. She needs further imaging to rule ou t pulmonary emboli. I will get a ventilation perfusion scan. Whatever the result of that test is, t he patient is currently on anticoagulation, so finding pulmonary embolism does not necessarily change our current treatment. I will follow with you.
[2017-12-21] MEDS: Rivaroxaban 15 MG TAB PO SCH ×2 (09:00→16:58)
[2017-12-21 13:07] LABS: Hemoglobin 10.5 g/dL (12.0-16.0)
--- NOTE | 2017-12-21 13:40 | NM ---
NUCLEAR MEDICINE VENTILATION PERFUSION SCAN: (V/Q SCAN) Date: 12/21/17 HISTORY: 42-year-old female with dyspnea. TECHNIQUE: Xenon-133 gas dose: 20.4 mCi [id number] dose: 5.9 mCi The patient inhaled Xenon-133 gas, and dynamic ventilation scintigraphy was performed. [id number] was injected IV, and multiple perfusion scintigraphic views were obtained. FINDINGS: There are no moderate-sized or large perfusion defects. There are no significant ventilation/perfusi on mismatches. IMPRESSION: Low probability for pulmonary thromboembolism. jn [] POS: C
[2017-12-21] MEDS: Morphine 4 MG/ML VIAL SLOW IVP PRN ×2 (14:01→17:03)
--- NOTE | 2017-12-21 15:10 | RAD ---
PA AND LATERAL VIEWS CHEST: HISTORY: Correlation with VQ scan. FINDINGS: Comparison is made with the exam of 11/16/17. The heart size is normal. No focal areas of consolidation, pneumothorax, or pleural effusions are se en. No acute osseous abnormality identified. There is a left upper extremity PICC line with tip in the projection of the cavoatrial junction. IMPRESSION: No acute process. POS: [facility]
--- NOTE | 2017-12-21 15:11 | PRG ---
DATE OF SERVICE: 12/21/2017 SUBJECTIVE: The patient reports that her pain is a little bit better. She has had no further nausea or vomiting. I reviewed her CT scan again with the radiologist and they feel that there is bleeding or blood within the peritoneal cavity that is new since the . It is difficult to tell where thi s blood is coming from or came from. They think that the most likely source by the appearance of the skin is the lower pole of the spleen as there appears to be a perisplenic hematoma that seems intrac apsular as well, though there is blood around the liver and loops of bowel. PHYSICAL EXAMINATION: VITAL SIGNS: Her temperature is 99.6, pulse 92, blood pressure 109/69. Her O2 sat is 94%, respirati ons are 18. GENERAL: She is awake and alert. Color is good. She does not appear to be in any distress. ABDOMEN: Soft, there is moderate tenderness diffusely. She has quite a bit of bruising on the anter ior abdominal wall which is new. The incision sites look fine. LABORATORY DATA: Her hemoglobin at 2:00 a.m. was 11, it is currently 10.5 with hematocrit 31.5, plat elet count was 159,000. She had a pulmonary angiogram that showed no evidence of pulmonary embolus. She also had a chest x-ray that was unremarkable. ASSESSMENT AND PLAN: Mesenteric venous thrombosis with bleeding making this difficult because she re quires anticoagulation for treatment. I discussed this case with Dr. Boston Newton for possible Inte rventional Radiology. He looked at the scans with the radiologist and because it is not clear where this is coming from and because her H and H has not dropped significantly, elected to not do this at this time. We will continue to keep her n.p.o. We will keep her at bed rest and do serial H and H.
[2017-12-21] MEDS: POTASSIUM CHLORIDE IV SCH (15:23)
[2017-12-21] MEDS: SODIUM CHLORIDE IV SCH (15:23)
[2017-12-21] MEDS: SODIUM ACETATE IV SCH (15:23)
[2017-12-21] MEDS: [UNRECOGNIZED DRUG - OTHER] IV SCH (15:23)
[2017-12-21] MEDS: Pantoprazole 40 MG VIAL IVP SCH (15:39)
[2017-12-21 16:36] LABS: Hemoglobin 10.3 g/dL (12.0-16.0)
[2017-12-21 21:42] LABS: Hemoglobin 9.5 g/dL (12.0-16.0)
[2017-12-22 03:59] LABS: Hemoglobin 9.3 g/dL (12.0-16.0)
[2017-12-22 04:15] LABS: INR-International Normal Ratio 1.6; Prothrombin Time 19.2 SEC (12.0-14.7)
[2017-12-22] MEDS: D5 1/2 NS w/20 mEq KCL 1,000 ML IV SCH ×3 (04:18→19:30)
[2017-12-22 04:31] LABS: ALT (SGPT) 20 U/L (8-55); AST (SGOT) 30 U/L (5-34); Albumin 2.7 g/dL (3.5-5.0); Alkaline Phosphatase 51 U/L (40-150); Anion Gap 8 mmol/L (10-20); BUN (Urea Nitrogen) 20 mg/dL (7.0-18.7); Bilirubin, Total 0.5 mg/dL (0.2-1.2); Calc. Creatinine Clearance 170 mL/min (70-130); Calcium 8.3 mg/dL (7.8-10.44); Carbon Dioxide 27 mmol/L (22-29); Chloride 108 mmol/L (98-107); Estimated GFR-MDRD 88; Globulin 2.5 g/dL (2.4-3.5); Glucose 126 mg/dL (70-105); Phosphorus 3.6 mg/dL (2.3-4.7); Potassium 4.6 mmol/L (3.5-5.1); Protein, Total 5.2 g/dL (6.0-8.3); Sodium 138 mmol/L (136-145)
[2017-12-22] MEDS: Rivaroxaban 15 MG TAB PO SCH ×2 (09:08→21:43)
[2017-12-22] MEDS: Pantoprazole 40 MG VIAL IVP SCH (09:30)
--- NOTE | 2017-12-22 09:47 | PRG ---
DATE OF SERVICE: 12/22/2017 SUBJECTIVE: The patient reports that she feels a lot better today that she really does not have any abdominal pain. No nausea. She is passing flatus. Reflexes a lot better. PHYSICAL EXAMINATION: VITAL SIGNS: Her temperature is 98.6, pulse 88, blood pressure 105/66. GENERAL: She is awake, alert, does not appear to be in any distress. There is no jaundice. LUNGS: Clear. HEART: Regular rate and rhythm. ABDOMEN: Soft, nondistended, less tender. LABORATORY DATA: Her hemoglobin is 9.3, hematocrit 28.7 down from 11 and 33. Electrolytes show BUN is 20, creatinine is 0.72. ASSESSMENT: Mesenteric venous thrombosis requiring anticoagulation with slow intraabdominal hemorrha ge that appears. We do not have a clear source, but she is getting symptomatically better. PLAN: We will continue to keep her at bed rest and monitor. If things do not, if it continues to bl eed or she gets any worse, we will consider either embolization or laparoscopy.
[2017-12-22 10:25] LABS: Hemoglobin 9.4 g/dL (12.0-16.0)
[2017-12-22] MEDS: Ondansetron PF 4 MG/2 ML Vial IVP PRN ×2 (13:53→21:48)
[2017-12-22] MEDS: Morphine 4 MG/ML VIAL SLOW IVP PRN ×2 (13:54→21:47)
[2017-12-22 15:06] LABS: Hemoglobin 9.3 g/dL (12.0-16.0)
[2017-12-22] MEDS: POTASSIUM CHLORIDE IV SCH (15:14)
[2017-12-22] MEDS: [UNRECOGNIZED DRUG - OTHER] IV SCH (15:14)
[2017-12-22] MEDS: SODIUM ACETATE IV SCH (15:14)
[2017-12-22] MEDS: SODIUM CHLORIDE IV SCH (15:14)
--- NOTE | 2017-12-22 15:19 | PRG ---
DATE OF SERVICE: 12/22/2017 SUBJECTIVE: The patient is doing reasonably well. PHYSICAL EXAMINATION: VITAL SIGNS: Temperature 98.8, pulse 94, respiration rate 16, O2 sat 96% room air, blood pressure 12 0/68. HEENT: Unremarkable. NECK: No JVD. LUNGS: Clear. CARDIAC: S1 and S2 regular. ABDOMEN: Slightly tender to palpation. EXTREMITIES: No edema. LABORATORY DATA: White blood cell count 9.4, hematocrit 29.2. Sodium 130, potassium 3.6, BUN 20, cr eatinine 0.7, glucose 126. ASSESSMENT: 1. No evidence of pulmonary embolism, based on the ventilation perfusion scan. 2. Mesenteric portal vein, splenic vein thromboses. 3. Recent sleeve surgery. PLAN: Continuing anticoagulation. The patient can get up into a chair.
[2017-12-22] MEDS: Ketorolac Tromethamine 30 MG/ML VIAL IVP PRN (19:47)
[2017-12-22 21:17] LABS: Hemoglobin 8.9 g/dL (12.0-16.0)
[2017-12-23] MEDS: D5 1/2 NS w/20 mEq KCL 1,000 ML IV SCH ×3 (00:28→21:29)
[2017-12-23] MEDS: Ketorolac Tromethamine 30 MG/ML VIAL IVP PRN (00:38)
[2017-12-23 05:16] LABS: #Eosinphils 0.3 thou/uL (0.0-0.7); #Lymphocytes 2.2 thou/uL (1.20-3.40); #Monocytes 0.7 thou/uL (0.11-0.59); #Neutrophils 4.9 thou/uL (1.40-6.50); %Basophils 0.4 % (0.0-1.0); %Lymphocytes 27.4 % (21.0-51.0); %Monocytes 8.2 % (0.0-10.0); %Neutrophils 59.9 % (42.0-75.0); Hemoglobin 8.4 g/dL (12.0-16.0); Mean Corpuscular HGB CONC 32.7 g/dL (32.0-36.0); Mean Corpuscular Hemoglobin 29.8 pg (27.0-31.0); Mean Corpuscular Volume 91.2 fL (78.0-98.0); Platelet Count 127 thou/uL (130-400); RBC Distribution Width 12.1 % (11.5-14.5); Red Blood Cell (RBC) Count 2.82 mill/uL (4.20-5.40); White Blood Cell (WBC) Count 8.1 thou/uL (4.8-10.8)
[2017-12-23 05:21] LABS: INR-International Normal Ratio 1.8; Prothrombin Time 20.5 SEC (12.0-14.7)
[2017-12-23 05:36] LABS: ALT (SGPT) 18 U/L (8-55); AST (SGOT) 23 U/L (5-34); Albumin 2.7 g/dL (3.5-5.0); Alkaline Phosphatase 55 U/L (40-150); Anion Gap 9 mmol/L (10-20); BUN (Urea Nitrogen) 23 mg/dL (7.0-18.7); Bilirubin, Total 0.6 mg/dL (0.2-1.2); Calc. Creatinine Clearance 180 mL/min (70-130); Calcium 8.2 mg/dL (7.8-10.44); Carbon Dioxide 26 mmol/L (22-29); Chloride 108 mmol/L (98-107); Estimated GFR-MDRD Greater than 90; Globulin 2.6 g/dL (2.4-3.5); Glucose 107 mg/dL (70-105); Magnesium 2.2 mg/dL (1.6-2.6); Phosphorus 4.4 mg/dL (2.3-4.7); Potassium 3.6 mmol/L (3.5-5.1); Protein, Total 5.3 g/dL (6.0-8.3); Sodium 139 mmol/L (136-145)
[2017-12-23] MEDS: Pantoprazole 40 MG VIAL IVP SCH (09:00)
[2017-12-23] MEDS: Rivaroxaban 15 MG TAB PO SCH (09:57)
--- NOTE | 2017-12-23 12:27 | PRG ---
DATE OF SERVICE: 12/23/2017. SUBJECTIVE: Ms. Mckinnon is a 42-year-old woman who is 1 month status post sleeve gastrectomy. The p atient was readmitted 1 week ago with epigastric abdominal pain. Subsequent radiographic examination was consistent with superior mesenteric vein as well as a portal vein thrombosis. The patient has been managed with anticoagulation using Xarelto. On 12/21/2017, th e patient was found with a 2 gram drop in the hemoglobin from 13.4 the day before to 11.0. CT scan o f the abdomen and pelvis, which was obtained on 12/20/2017 revealed a new intraperitoneal fluid colle ction density that of blood. Currently, she denies any significant abdominal pain. She remains into lerant of oral intake, which exacerbates nausea and some epigastric pain. She is having adequate uri nary output. OBJECTIVE: VITAL SIGNS: Today includes blood pressure 91/54, pulse is 96, respirations 18, temperature 97.4 deg geoff Fahrenheit, oxygen saturation is 95% on room air. HEART: Reveals regular rate and rhythm. LUNGS: Clear to auscultation bilaterally. Breathing is regular and unlabored. ABDOMEN: Soft with mild tenderness to palpation. Incisions intact, clean, and dry. NEUROLOGICAL: Reveals no focal deficits present. LABORATORY DATA: Today include a CBC with 9200 white blood cells, hemoglobin and hematocrit are 11.0 and 33.8 respectively. Platelet count is 159,000. Metabolic profile: Sodium 139, potassium 3.6, c hloride is 108, bicarbonate is 26, BUN 23, creatinine 0.69, glucose is 107. AST and ALT normal at 23 and 18 respectively. IMPRESSION: 1. One month status post sleeve gastrectomy. 2. Postoperative multifocal venous thrombosis involving the superior mesenteric and portal vein. 3. Postoperative intraperitoneal hemorrhage. 4. Acute blood loss anemia, stable. PLAN: 1. We will decrease the frequency of laboratory studies to minimize iatrogenic anemia. 2. We will encourage the patient to ambulate at least in her room, shuffling, no stairs at the [facility] t. We will continue to monitor her for adequate hemostasis. There is really no acute surgical indic ation for this patient at this time. The above findings and plan discussed with the patient who indicates understanding of information giv en. I answered her questions.
--- NOTE | 2017-12-23 12:51 | PRG ---
DATE OF SERVICE: 12/23/2017 SUBJECTIVE: The patient is sleeping. She appears to be doing well. PHYSICAL EXAMINATION: VITAL SIGNS: On exam, temperature is 98.5, pulse 102, respirations 18, O2 sat 97% on room air, blood pressure 121/82. HEENT: Unremarkable. NECK: No JVD. CHEST: Clear. CARDIAC: S1 and S2, regular. LABORATORY DATA: Sodium 139, potassium 3.6, BUN 23, creatinine 0.6, glucose 107, hemoglobin 8.4, shraddha telet count 127. ASSESSMENT: 1. Portal vein thrombosis. 2. Splenic vein and mesenteric thrombosis. 3. Possible intraperitoneal bleeding, which appears to be stable. PLAN: She continues on anticoagulation with Xarelto. If further blood loss becomes a problem, then we may have to consider putting her on heparin and/or Coumadin - something that can be reversed more readily if needed.
[2017-12-23] MEDS ORDERED: PHENYLEPHRINE-NS 100 MCG/ML 10 ML SYRINGE ONE (13:56)
[2017-12-23] MEDS ORDERED: Lidocaine 1% PF 5 ML VIAL ONE (13:56)
[2017-12-23] MEDS ORDERED: PROPOFOL 200 MG/20 ML VIAL ONE (13:56)
[2017-12-23] MEDS ORDERED: Ondansetron PF 4 MG/2 ML Vial ONE (13:56)
[2017-12-23] MEDS: SODIUM ACETATE IV SCH (14:04)
[2017-12-23] MEDS: SODIUM CHLORIDE IV SCH (14:04)
[2017-12-23] MEDS: POTASSIUM CHLORIDE IV SCH (14:04)
[2017-12-23] MEDS: [UNRECOGNIZED DRUG - OTHER] IV SCH (14:04)
[2017-12-23] MEDS: Morphine 4 MG/ML VIAL SLOW IVP PRN (14:17)
[2017-12-23] MEDS: Ondansetron PF 4 MG/2 ML Vial IVP PRN (14:17)
[2017-12-23] MEDS ORDERED: Albumin 5% 500 ML ONE (15:24)
[2017-12-23] MEDS ORDERED: Hydrocortisone Sod Succ/PF 100 mg/2 ml Vial IVP SCH (15:30)
[2017-12-23 15:34] LABS: #Basophils 0.1 thou/uL (0.0-0.2); #Eosinphils 0.4 thou/uL (0.0-0.7); #Lymphocytes 3.8 thou/uL (1.20-3.40); #Neutrophils 6.9 thou/uL (1.40-6.50); %Basophils 0.4 % (0.0-1.0); %Eosinophils 3.6 % (0.0-10.0); %Monocytes 8.3 % (0.0-10.0); %Neutrophils 56.7 % (42.0-75.0); Hemoglobin 7.3 g/dL (12.0-16.0); Mean Corpuscular HGB CONC 32.7 g/dL (32.0-36.0); Mean Corpuscular Hemoglobin 29.8 pg (27.0-31.0); Mean Corpuscular Volume 91.1 fL (78.0-98.0); Mean Platelet Volume 8.4 fL (7.4-10.4); Platelet Count 190 thou/uL (130-400); RBC Distribution Width 12.3 % (11.5-14.5); Red Blood Cell (RBC) Count 2.45 mill/uL (4.20-5.40); White Blood Cell (WBC) Count 12.2 thou/uL (4.8-10.8)
[2017-12-23] MEDS ORDERED: Calcium Chloride 1 GM/10 ML Abboject SYRINGE ONE (15:53)
[2017-12-23 15:58] LABS: Actual Bicarbonate (HCO3a) 22.1 mEq/L (22-28); Base Excess (BEa) -2.2 mEq/L (-2.0 to +3.0); CO2 Tension 35.3 mmHg (35.0-45.0); O2 Tension (PaO2) 110.1 mmHg (80.0-100.0); pH, Arterial 7.42 (7.35-7.45)
[2017-12-23 15:59] LABS: Calcium, Ionized 1.07 mmol/L (1.12-1.30); Carboxyhemoglobin (COHb) 1.3 gm% (0.0-3.0); Hemoglobin (Hb) 6.9 g/dL (12.0-16.0); Potassium - ABG Lab 3.82 mmol/L (3.70-5.30); Puncture Site LBA
[2017-12-23 16:00] LABS: ALV-art Gradient 45.415 (0-20)
[2017-12-23] MEDS ORDERED: Calcium Chloride 1 GM/10 ML Abboject SYRINGE IVP SCH (16:00)
[2017-12-23] MEDS ORDERED: Fentanyl 100 MCG/2 ML VIAL ONE ×2 (16:32→20:54)
[2017-12-23] MEDS ORDERED: HYDROmorphone 2 MG/ML VIAL ONE (16:33)
[2017-12-23] MEDS ORDERED: Phenylephrine HCL 10 MG/ML VIAL ONE (16:33)
[2017-12-23] MEDS ORDERED: CEFAZOLIN/Water 2 GM/20 ML SYRINGE SLOW IVP SCH ×2 (16:45)
[2017-12-23] MEDS ORDERED: Midazolam HCl 2 mg/2 ml Vial ONE (16:51)
[2017-12-23] MEDS ORDERED: Ketamine 50 MG/ML VIAL ONE (17:02)
[2017-12-23] MEDS ORDERED: Bupivacaine/Epinephrine 0.25% 30 ML VIAL ONE (17:21)
--- NOTE | 2017-12-23 17:42 | PRG ---
DATE OF SERVICE: 12/23/2017 SUBJECTIVE: Ms. Mckinnon was doing well today, up until approximately 14:17 hours when she received s ome IV morphine for pain. Shortly thereafter, the patient was complaining of feeling "woozy." The t madisyn she was found with low a blood pressure 83/52 with a heart rate of 72 in contrast to 3 morphine, blood pressure 135/81 and heart rate 99. Repeat blood pressure measurements reveals persistent hyper tension. The patient appeared pale. Laboratory studies were sent. The patient has received 1500 mL crystalloids and 500 mL of 5% albumin. Blood products been ordered and is pending transfusion. Cur rently, blood pressure is improving. The patient now denies any nausea or syncope. She was previous ly complaining of some chest pain which is now resolving. She complains of right temporal headache, which is unchanged from previous complaints which has been already worked up with CT scan of the brai n. OBJECTIVE: VITAL SIGNS: Vital signs after the IV fluids is stabilized now to a systolic blood pressure in the 9 0s. Heart rate is in the 80s. HEART: Reveals regular rate and rhythm, no murmurs or gallops auscultated. CHEST: Clear to auscultation bilaterally. Breathing is regular and unlabored. ABDOMEN: Soft and nondistended. She has lower abdominal tenderness to palpation, no gross rebound t enderness present. NEUROLOGIC: Reveals no focal deficits present. LABORATORY STUDIES: Include a CBC with 12,200 white blood cells, hemoglobin and hematocrit are 7.3 a nd 22.3 respectively. Platelet count is 190,000. Arterial blood gas pH is 7.42, pCO2 of 35, pO2 of 110. Base excess negative 2.2. Ionized calcium is 1.0. IMPRESSION: 1. Acute blood loss anemia secondary to intraabdominal hemorrhage. 2. Acute hypocalcemia. 3. Acute qualitative platelet dysfunction on Xarelto. PLAN: 1. The patient will be transfused with 2 units of packed red blood cells, 2 units of fresh frozen pl asma and 6 pack of platelets. 2. I do not see any need to reverse the Xarelto at this time with Concerta due to this patient's kno history of multiple venous thrombosis. The patient's primary surgeon, Dr. Paulson is en route and w ill be evaluating the patient for possible return to the operating room for laparoscopic examination.
[2017-12-23] MEDS: Acetaminophen 1,000 MG in Premix Bag 1 BAG IVPB SCH ×2 (18:19→23:28)
[2017-12-23] MEDS ORDERED: Rocuronium Bromide 50 MG/5 ML VIAL ONE (19:52)
[2017-12-23] MEDS ORDERED: Ondansetron PF 4 MG/2 ML Vial IVP SCH (20:00)
[2017-12-23] MEDS ORDERED: Morphine 10 MG/ML VIAL SLOW IVP PRN (20:35)
[2017-12-23] MEDS ORDERED: Ventilator Sedation Protocol 1 EACH FS SCH (20:35)
[2017-12-23] MEDS ORDERED: Propofol BOLUS 1,000 MG/100 ML VIAL IV PRN (20:42)
[2017-12-23] MEDS ORDERED: DISCONTINUE PREVIOUS NARCOTIC PAIN MEDICATIONS AND BENZODIAZEPINES FS SCH (20:42)
[2017-12-23] MEDS ORDERED: Fentanyl BOLUS 250 ML IVPB PRN (20:42)
[2017-12-23] MEDS ORDERED: Lorazepam 2 MG/ML VIAL SLOW IVP PRN (20:42)
[2017-12-23] MEDS ORDERED: fentaNYL Citrate/PF 2,000 MCG in Sodium Chloride 0.9% 60 ML IV SCH (20:55)
[2017-12-23] MEDS ORDERED: Morphine 4 MG/ML VIAL SLOW IVP PRN (20:56)
--- NOTE | 2017-12-23 21:01 | EKG ---
Test Reason : Blood Pressure : / mmHG Vent. Rate : 093 BPM Atrial Rate : 093 BPM P-R Int : 128 ms QRS Dur : 074 ms QT Int : 366 ms P-R-T Axes : 038 019 -17 degrees QTc Int : 455 ms Normal sinus rhythm Possible Inferior infarct , age undetermined Abnormal ECG When compared with ECG of 16-NOV-2017 16:55, Borderline criteria for Inferior infarct are now Present T wave inversion more evident in Inferior leads Nonspecific T wave abnormality now evident in Anterior leads Confirmed by Christine RAMEY ([id number]) on 12/23/2017 9:01:01 PM Referred By: AUREA Confirmed By:Christine RAMEY
[2017-12-23 21:15] LABS: Actual Bicarbonate (HCO3a) 20.9 mEq/L (22-28); Base Excess (BEa) -4.6 mEq/L (-2.0 to +3.0); Calcium, Ionized 1.11 mmol/L (1.12-1.30); Carboxyhemoglobin (COHb) 1.1 gm% (0.0-3.0); Hemoglobin (Hb) 10.4 g/dL (12.0-16.0); O2 Tension (PaO2) 117.4 mmHg (80.0-100.0); Potassium - ABG Lab 4.19 mmol/L (3.70-5.30); pH, Arterial 7.34 (7.35-7.45)
[2017-12-23 21:19] LABS: Puncture Site LRA
[2017-12-23 21:29] LABS: Mean Corpuscular HGB CONC 34.1 g/dL (32.0-36.0); Mean Corpuscular Hemoglobin 30.7 pg (27.0-31.0); Mean Corpuscular Volume 90.1 fL (78.0-98.0); Mean Platelet Volume 7.8 fL (7.4-10.4); Platelet Count 196 thou/uL (130-400); RBC Distribution Width 13.3 % (11.5-14.5); Red Blood Cell (RBC) Count 3.26 mill/uL (4.20-5.40); White Blood Cell (WBC) Count 23.3 thou/uL (4.8-10.8)
--- NOTE | 2017-12-23 21:38 | OP ---
DATE OF PROCEDURE: 12/23/2017 PREOPERATIVE DIAGNOSIS: Intraabdominal hemorrhage. SURGEON: Christiano Paulson M.D. PROCEDURES PERFORMED: Diagnostic laparoscopy, laparoscopic splenectomy, open control of hemorrhage f rom splenic bed. INDICATIONS: The patient is a 42-year-old female who about 2.5-3 weeks ago had a sleeve gastrectomy. Postoperatively, she had several episodes of dehydration requiring her to go to the ER for fluid. Then she developed severe abdominal pain and a CT scan was obtained showing mesenteric portal and spl enic vein thrombosis. Hematology was consulted and recommended Xarelto for anticoagulation, although we had started her on Lovenox full anticoagulations switched to Xarelto on the recommendation. Hipolito vega on anticoagulation, she was doing fairly well for a few days, was about ready to go home when she h ad the sudden onset of severe abdominal pain and hypotension. She was found to have on repeat CT sca n to have fresh bleeding intra-abdominally. The source was not clear. There was blood around the sp rosalina as well as the liver and bowel and into the pelvis. She seemed to settle down with bed rest. H emoglobin and hematocrit slightly changed and then today she had another episode of severe pain and h ypotension and a drop in her hematocrit. FINDINGS: She had a splenic capsular hematoma that had ruptured on the inferior pole. This rupture was about 2 cm in length, did not appear to be something that could be taking care of with just splen orrhaphy, was able to get the spleen out with the laparoscope, however, the splenic bed was very hemo rrhagic. PROCEDURE IN DETAIL: After informed consent was obtained, the patient was taken to the operating moni m and given general endotracheal anesthesia. She was placed in the supine position. Her abdomen was prepped and draped in usual fashion. Local anesthesia infiltrated subcutaneously and deep and a 5 m m incision was performed through the old incision near the umbilicus. Veress needle inserted. Drop test performed. Pneumoperitoneum was created to a volume of 2 liters of carbon dioxide. Utilizing a bladeless 5 mm trocar and 0 degree laparoscope, direct visual entry in the abdominal cavity was perf ormed. Pneumoperitoneum was created to a pressure of 15 mmHg and the patient placed in steep reverse Trendelenburg position. Cristinaen liver retractor inserted. Left lobe of liver retracted superiorl y. Two other 5-mm ports were placed in order to look around to find the source of the bleeding. The re was quite a bit of blood and we had to use a large laparoscopic sucker to get the blood out of the abdominal cavity. We were able to inspect the spleen and there was on the posterior aspect of the s pleen inferior was a hematoma that had ruptured and was actively bleeding. Due to the fact that she required anticoagulation, elected that the best course of action was to go ahead and remove the splee n. Because of the recent surgery, there was quite a bit inflammation along the anterior medial aspec t of the spleen. This was taken down utilizing the LigaSure. The splenic vessels were then divided utilizing the linear 60 mm white load vascular staple load. The capsule was then further incised and controlled with further staple loads. Once the spleen was mobilized, it was placed at the 12 mm por t on the left side, it was changed out to a 15 mm port and a large retrieval bag inserted. The splee n placed in the retrieval bag and the spleen was removed piecemeal using ring forceps. Then, went ba ck in to inspect the bed. There was just ooze everywhere. Tried cautery, tried the argon laser, tri ed Surgicel, tried the lid biologic glue. It continued to ooze, elected that to convert to an open p rocedure a left subcostal incision was performed. Subcu divided sharply. The muscle fascia was inci sed and the muscle divided utilizing electrocautery. The posterior fascia was then opened and retrac tion achieved with a Bookwalter retractor. The left upper quadrant was packed with dry laparotomy pa cks and slowly removed. Multiple sites of ooze. These were controlled with a series of bvpric-ob-fn ghts of 2-0 Vicryl suture about 10. Also there was just this still a little bit ooze from a couple o ther areas and Surgicel was applied as well as the fibrin glue. Got good hemostasis and the abdomen was thoroughly irrigated. All the old blood was removed. The area was again inspected and appeared continue dry, but she was oozing from the muscle of the abdominal wall. Again duwepc-sn-wmecha were placed in this to control that. Then the posterior fascia was closed with a running #1 PDS. The ant erior fascia was closed with a running #1 PDS. Subcutaneous irrigated, hemostasis achieved with elec trocautery and closed with interrupted 2-0 Vicryl sutures. Prior to closing abdominal wall, the larg e trocar site where we extracted the spleen was closed with [id number] of 2-0 Vicryl, then the skin was closed with skin marla. Sterile bandages applied. Patient did tolerate the procedure wel l, but lost quite a bit of blood, probably around a liter of blood. She is hemodynamically stable. She will be moved to the ICU in serious but stable condition.
[2017-12-23 21:55] LABS: Band 6 % (5-11); Hypochromia SLIGHT = 6-15 cells (100X) (0-5/hpf); Lymphocytes 5 % (21-51); MDiff Complete? YES; Monocytes 6 % (0-10); Neutrophil 83 % (42-75); PLT Morphology Comment Appears Adequate; Polychromasia SLIGHT = 2-3 cells (100X) (0-2/hpf)
[2017-12-24] MEDS: Propofol 1,000 MG/100 ML VIAL IV PRN ×2 (01:05→06:23)
[2017-12-24 04:26] LABS: #Lymphocytes 2.3 thou/uL (1.20-3.40); #Monocytes 1.3 thou/uL (0.11-0.59); #Neutrophils 14.3 thou/uL (1.40-6.50); %Eosinophils 0.2 % (0.0-10.0); %Lymphocytes 12.5 % (21.0-51.0); %Monocytes 7.4 % (0.0-10.0); %Neutrophils 79.8 % (42.0-75.0); Hemoglobin 8.8 g/dL (12.0-16.0); Mean Corpuscular HGB CONC 34.5 g/dL (32.0-36.0); Mean Corpuscular Hemoglobin 30.7 pg (27.0-31.0); Mean Corpuscular Volume 88.9 fL (78.0-98.0); Mean Platelet Volume 8.2 fL (7.4-10.4); Platelet Count 178 thou/uL (130-400); RBC Distribution Width 13.3 % (11.5-14.5); Red Blood Cell (RBC) Count 2.86 mill/uL (4.20-5.40); White Blood Cell (WBC) Count 17.9 thou/uL (4.8-10.8)
[2017-12-24 04:54] LABS: Magnesium 1.8 mg/dL (1.6-2.6); Phosphorus 2.6 mg/dL (2.3-4.7)
[2017-12-24] MEDS: Acetaminophen 1,000 MG in Premix Bag 1 BAG IVPB SCH (05:22)
[2017-12-24 06:06] LABS: INR-International Normal Ratio 1.5; Prothrombin Time 17.7 SEC (12.0-14.7)
--- NOTE | 2017-12-24 07:42 | PRG ---
DATE OF SERVICE: 12/24/2017 Thirty-five minutes critical care time. The patient remains intubated after surgery last night for bleeding around the splenic area. She und erwent initially laparoscopic splenectomy, but had to be opened for control of bleeding. She was lef t intubated after the procedure. PHYSICAL EXAMINATION: VITAL SIGNS: Temperature is 98.4, pulse 102, blood pressure 94/58. She is currently on propofol and fentanyl drip. Intake 2318, output 1180, weight 255 pounds. HEENT: Unremarkable. NECK: No JVD. LUNGS: Clear anteriorly. CARDIOVASCULAR: S1 and S2 regular to tachycardic. ABDOMEN: Soft. Surgical wounds appear to be healing nicely. EXTREMITIES: No clubbing, cyanosis. She has trace edema throughout. LABORATORY DATA: Chemistry is pending. INR is 1.5. White blood count 17.9, hematocrit 25.4, hemogl obin 8.8, platelet count 178. Chest x-ray is pending. ASSESSMENT: 1. Postop vent. 2. Status post gastric sleeve procedure. 3. Portal vein, splenic vein and mesenteric vein thrombosis. 4. Status post laparotomy for control of bleeding. PLAN: 1. For the time being, the patient is being left anticoagulated until deemed safe by Surgery to resu me. Once it is resumed I would recommend heparin and Coumadin initially as that could be more readil y reversed in the event of bleeding. 2. Check stat x-ray, stat ABG, and chemistry. 3. Continue daily labs.
--- NOTE | 2017-12-24 07:47 | RAD ---
CHEST 1 VIEW: HISTORY: Respiratory insufficiency. COMPARISON: 12/21/2017. FINDINGS: Endotracheal tube in satisfactory location. Left PICC line in place. Monitor leads overlie the ches t. Minimal parenchymal changes in the left base and also in the right perihilar region, possibly yusra e subsegmental atelectasis. No overt edema. IMPRESSION: Bilateral parenchymal changes including the right perihilar region and left lower lobe retrocardiac r egion, evidence of subsegmental atelectasis with less overall inspiratory effort than on the prior st udy. Continue short-term followup. POS: OFF
[2017-12-24 07:50] LABS: Anion Gap 9 mmol/L (10-20); BUN (Urea Nitrogen) 23 mg/dL (7.0-18.7); Calc. Creatinine Clearance 171 mL/min (70-130); Carbon Dioxide 27 mmol/L (22-29); Chloride 107 mmol/L (98-107); Estimated GFR-MDRD 81; Glucose 191 mg/dL (70-105); Potassium 4.6 mmol/L (3.5-5.1); Sodium 138 mmol/L (136-145)
--- NOTE | 2017-12-24 07:52 | PRG ---
DATE OF SERVICE: 12/24/2017 SUBJECTIVE: The patient is awake on the ventilator this morning. She mainly complains of her throat . OBJECTIVE: VITAL SIGNS: Heart rate is 102, blood pressure 95/58. She has got good O2 sat. Urine output is 118 0. LABORATORY DATA: Her white count is 17.9, H&H 8.8 and 25, platelet count 178. Her H&H has dropped f rom 10 to 8.8. Her dressing is dry. ASSESSMENT: Mesenteric thrombosis, splenic bleeding, status post splenectomy. PLAN: Keep an eye on her H&H, vent management per Pulmonary. Hold Xarelto. When she is more stable hematologically will restart heparin.
[2017-12-24 07:53] LABS: Actual Bicarbonate (HCO3a) 27.6 mEq/L (22-28); Base Excess (BEa) 3.5 mEq/L (-2.0 to +3.0); CO2 Tension 39.8 mmHg (35.0-45.0); Calcium, Ionized 1.11 mmol/L (1.12-1.30); Carboxyhemoglobin (COHb) 0.6 gm% (0.0-3.0); Hemoglobin (Hb) 9.3 g/dL (12.0-16.0); O2 Tension (PaO2) 78.8 mmHg (80.0-100.0); Potassium - ABG Lab 4.11 mmol/L (3.70-5.30); pH, Arterial 7.46 (7.35-7.45)
[2017-12-24 07:54] LABS: Puncture Site RRA
[2017-12-24] MEDS: Pantoprazole 40 MG VIAL IVP SCH (08:07)
[2017-12-24] MEDS: Morphine 4 MG/ML VIAL SLOW IVP PRN ×5 (08:07→20:39)
[2017-12-24] MEDS: D5 1/2 NS w/20 mEq KCL 1,000 ML IV SCH ×2 (09:16→17:24)
[2017-12-24 09:55] LABS: Hemoglobin 8.7 g/dL (12.0-16.0)
[2017-12-24] MEDS: Ondansetron PF 4 MG/2 ML Vial IVP PRN ×2 (10:46→20:38)
[2017-12-24] MEDS: Promethazine HCl 25 MG/ML VIAL IM/IV PRN ×2 (12:57→17:20)
[2017-12-24 14:48] LABS: Hemoglobin 9.1 g/dL (12.0-16.0)
[2017-12-24] MEDS: POTASSIUM CHLORIDE IV SCH (14:55)
[2017-12-24] MEDS: [UNRECOGNIZED DRUG - OTHER] IV SCH (14:55)
[2017-12-24] MEDS: SODIUM ACETATE IV SCH (14:55)
[2017-12-24] MEDS: SODIUM CHLORIDE IV SCH (14:55)
[2017-12-24 20:43] LABS: Hemoglobin 9.4 g/dL (12.0-16.0)
[2017-12-25] MEDS: Morphine 4 MG/ML VIAL SLOW IVP PRN (00:40)
[2017-12-25] MEDS: Promethazine HCl 25 MG/ML VIAL IM/IV PRN ×2 (00:43→10:46)
[2017-12-25] MEDS: D5 1/2 NS w/20 mEq KCL 1,000 ML IV SCH ×3 (01:07→17:02)
[2017-12-25 04:43] LABS: INR-International Normal Ratio 1.3
[2017-12-25 04:51] LABS: Anion Gap 8 mmol/L (10-20); BUN (Urea Nitrogen) 18 mg/dL (7.0-18.7); Calc. Creatinine Clearance 205 mL/min (70-130); Calcium 7.9 mg/dL (7.8-10.44); Carbon Dioxide 29 mmol/L (22-29); Chloride 104 mmol/L (98-107); Estimated GFR-MDRD Greater than 90; Glucose 152 mg/dL (70-105); Potassium 4.1 mmol/L (3.5-5.1); Sodium 137 mmol/L (136-145)
[2017-12-25 05:08] LABS: Eosinophils 2 % (0-10); Hypochromia SLIGHT = 6-15 cells (100X) (0-5/hpf); Lymphocytes 13 % (21-51); MDiff Complete? YES; Mean Corpuscular HGB CONC 31.9 g/dL (32.0-36.0); Mean Corpuscular Volume 91.1 fL (78.0-98.0); Mean Platelet Volume 8.5 fL (7.4-10.4); Monocytes 5 % (0-10); Neutrophil 80 % (42-75); PLT Morphology Comment Appears Adequate; Platelet Count 279 thou/uL (130-400); RBC Distribution Width 13.9 % (11.5-14.5); Red Blood Cell (RBC) Count 3.11 mill/uL (4.20-5.40); White Blood Cell (WBC) Count 20.3 thou/uL (4.8-10.8)
[2017-12-25] MEDS ORDERED: Fentanyl 100 MCG/2 ML VIAL SLOW IVP PRN (07:13)
[2017-12-25] MEDS ORDERED: Heparin 10,000 UNITS/ 10 ML VIAL SLOW IVP SCH (07:30)
[2017-12-25] MEDS: Fentanyl 100 MCG/2 ML VIAL SLOW IVP PRN ×3 (07:40→10:47)
[2017-12-25] MEDS: Piperacillin/Tazobactam 3.375 GM in Sodium Chloride 0.9% 100 ML IVPB SCH ×3 (07:41→20:38)
[2017-12-25 07:47] LABS: Hemoglobin 9.2 g/dL (12.0-16.0); Platelet Count 295 thou/uL (130-400)
--- NOTE | 2017-12-25 07:52 | PRG ---
DATE OF SERVICE: 12/25/2017 SUBJECTIVE: The patient reports being very anxious about her whole situation. She is not allowing t he nurses to give her pain medicine, because she is afraid that is what caused her to bleed. She is also afraid of having further clot, so she is lying very still and shaking quite a bit. She says she does have a lot of incisional pain on that left side. She does have some mild nausea, no vomiting. PHYSICAL EXAMINATION: VITAL SIGNS: On examination, her temperature is 99.4, pulse 106, blood pressure 123/78. GENERAL: She is awake and alert. HEENT: Good color. LUNGS: Clear, but shallow breathing. ABDOMEN: Nondistended, tender in the left upper quadrant with a dressing, which is fairly dry. Her urine output is 2155. LABORATORY DATA: Her white count is up to 20,000, H and H 9 and 28, platelet count is 279. Her elec trolytes show low BUN at 8. Her creatinine is 18. Her CO2 is 29, glucose is 152. Her PT is 16. IN R 1.3. ASSESSMENT: 1. Intraabdominal hemorrhage, appears to have stopped, H and H is stable. 2. 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 3. Anxiety is a problem. I am concerned about elevated white count and elevated temperature. PLAN: We will change her pain medicine to fentanyl. We will check amylase, lipase, LFTs. We are go ing to start a heparin drip today, but no bolus and Ativan for agitation. We will start antibiotics. We will check chest x-ray and urinalysis.
[2017-12-25] MEDS ORDERED: Heparin 10,000 UNITS/1 ML VIAL SLOW IVP SCH (08:00)
[2017-12-25 08:03] LABS: ALT (SGPT) 19 U/L (8-55); AST (SGOT) 34 U/L (5-34); Albumin 2.8 g/dL (3.5-5.0); Alkaline Phosphatase 60 U/L (40-150); Bilirubin, Direct 0.4 mg/dL (0.1-0.3); Bilirubin, Total 0.8 mg/dL (0.2-1.2); Protein, Total 5.1 g/dL (6.0-8.3)
[2017-12-25] MEDS: Heparin 25,000 units/D5W 500 ML IVPB SCH (08:31)
[2017-12-25] MEDS: Pantoprazole 40 MG VIAL IVP SCH (08:31)
--- NOTE | 2017-12-25 08:57 | RAD ---
PORTABLE CHEST: Date: 12/25/17 HISTORY: Fever. COMPARISON: 12/24/17. FINDINGS: Heart is mildly prominent. There is left basilar opacification obscuring the left hemidiaphragm consi stent with left basilar atelectasis or consolidation. There is mild linear atelectasis in the right m id lung. The PICC line is unchanged. The ET tube has been removed. IMPRESSION: Left basilar consolidation and mild right mid lung atelectasis, unchanged from yesterday. POS: CHAKA
[2017-12-25] MEDS: Ondansetron PF 4 MG/2 ML Vial IVP PRN ×2 (09:10→20:43)
[2017-12-25 09:22] LABS: Magnesium 1.9 mg/dL (1.6-2.6); Phosphorus 2.5 mg/dL (2.3-4.7)
[2017-12-25 11:23] LABS: Bilirubin Negative (Negative); Blood, Urine Negative (Negative); Clarity CLEAR (Clear); Glucose, Urine (Dipstick) Negative (Negative); Leukocyte Small (Negative); Nitrite Negative (Negative); Protein, Urine (Dipstick) Negative (Neg-Trace); Specific Gravity, Urine 1.024 (1.002-1.036); pH, Urine 6.5 (5.0-9.0)
[2017-12-25 11:24] LABS: Bacteria/HPF None Seen HPF (None Seen); Hyaline Casts/LPF 0-3 HYALINE CAST LPF (0-3 Hyaline); Pathc Cast-AUWi Flag 0.87 (0-2.49); Squamous Epithelial 0-3 HPF (0-3)
[2017-12-25] MEDS ORDERED: Ondansetron ODT 4 MG TAB SL PRN (12:25)
[2017-12-25] MEDS ORDERED: Promethazine HCl 25 MG/ML VIAL IM PRN (12:28)
[2017-12-25] MEDS ORDERED: diphenhydrAMINE 25 MG CAP PO PRN (12:28)
[2017-12-25] MEDS ORDERED: diphenhydrAMINE 50 MG/ML VIAL IM/IV PRN (12:28)
[2017-12-25] MEDS ORDERED: Naloxone HCl 0.4 mg/ml Vial IV PRN (12:28)
[2017-12-25] MEDS ORDERED: Zolpidem Tartrate 5 MG TAB PO PRN (12:28)
[2017-12-25] MEDS: [UNRECOGNIZED DRUG - OTHER] IV SCH (13:45)
[2017-12-25] MEDS: SODIUM ACETATE IV SCH (13:45)
[2017-12-25] MEDS: POTASSIUM CHLORIDE IV SCH (13:45)
[2017-12-25] MEDS: SODIUM CHLORIDE IV SCH (13:45)
[2017-12-25] MEDS: fentaNYL Citrate/PF 2,000 MCG in Sodium Chloride 0.9% 60 ML IV PRN (14:05)
[2017-12-25 14:20] LABS: PTT 118.1 SEC (22.9-36.1)
[2017-12-25 14:34] LABS: Band 8 % (5-11); Eosinophils 3 % (0-10); Hemoglobin 9.1 g/dL (12.0-16.0); Lymphocytes 18 % (21-51); MDiff Complete? YES; Mean Corpuscular HGB CONC 32.9 g/dL (32.0-36.0); Mean Corpuscular Hemoglobin 30.3 pg (27.0-31.0); Mean Corpuscular Volume 92.2 fL (78.0-98.0); Mean Platelet Volume 8.6 fL (7.4-10.4); Monocytes 5 % (0-10); Neutrophil 66 % (42-75); PLT Morphology Comment Appears Adequate; Platelet Count 299 thou/uL (130-400); Polychromasia MODERATE = 3-4 cells (100X) (0-2/hpf); RBC Distribution Width 14.1 % (11.5-14.5); Red Blood Cell (RBC) Count 3.01 mill/uL (4.20-5.40); White Blood Cell (WBC) Count 20.7 thou/uL (4.8-10.8)
--- NOTE | 2017-12-25 18:04 | PRG ---
DATE OF SERVICE: 12/25/2017 SUBJECTIVE: Ms. Mckinnon is sitting in the chair at the bedside. She says her bottom is getting sore so she has been put in bed when I examined her. OBJECTIVE: VITAL SIGNS: Blood pressure 111/77, heart rate 107, respiratory rate is 19, oximetry is 96. LUNGS: Clear. HEART: Regular rhythm. ABDOMEN: Soft. LABORATORY DATA: White count 20.7, hemoglobin 9.1, platelets 299. Sodium 137, potassium 4.1, chloride 104, bicarb 29, BUN 18, creatinine 0.64. IMPRESSION: 1. Status post mechanical ventilation. 2. Status post gastric sleeve. 3. Status post portal vein, splenic vein and mesenteric vein thrombi. 4. Status post laparotomy to control bleeding. 5. Status post splenectomy. She is gently be need back in anticoagulation. The reason for the relative hypercoagulable state is unclear. The resulted parts of a thrombosis panel are not abnormal so far. Either way, she gets anticoagulation possibly for life. ROSA
[2017-12-26] MEDS: Piperacillin/Tazobactam 3.375 GM in Sodium Chloride 0.9% 100 ML IVPB SCH ×4 (02:12→20:10)
[2017-12-26] MEDS: D5 1/2 NS w/20 mEq KCL 1,000 ML IV SCH ×3 (02:16→20:33)
[2017-12-26 05:00] LABS: #Basophils 0.1 thou/uL (0.0-0.2); #Monocytes 2.3 thou/uL (0.11-0.59); #Neutrophils 12.4 thou/uL (1.40-6.50); %Basophils 0.5 % (0.0-1.0); %Lymphocytes 20.4 % (21.0-51.0); %Monocytes 11.6 % (0.0-10.0); %Neutrophils 62.5 % (42.0-75.0); Hemoglobin 8.3 g/dL (12.0-16.0); Mean Corpuscular HGB CONC 32.9 g/dL (32.0-36.0); Mean Corpuscular Hemoglobin 30.6 pg (27.0-31.0); Mean Corpuscular Volume 92.8 fL (78.0-98.0); Mean Platelet Volume 8.3 fL (7.4-10.4); Platelet Count 311 thou/uL (130-400); RBC Distribution Width 13.9 % (11.5-14.5); White Blood Cell (WBC) Count 19.8 thou/uL (4.8-10.8)
[2017-12-26 05:08] LABS: INR-International Normal Ratio 1.4; Prothrombin Time 16.9 SEC (12.0-14.7)
[2017-12-26 05:09] LABS: PTT 58.4 SEC (22.9-36.1)
[2017-12-26 05:26] LABS: Anion Gap 6 mmol/L (10-20); BUN (Urea Nitrogen) 17 mg/dL (7.0-18.7); Calc. Creatinine Clearance 194 mL/min (70-130); Carbon Dioxide 32 mmol/L (22-29); Chloride 101 mmol/L (98-107); Estimated GFR-MDRD Greater than 90; Glucose 138 mg/dL (70-105); Potassium 3.6 mmol/L (3.5-5.1); Sodium 135 mmol/L (136-145)
[2017-12-26] MEDS: Ondansetron PF 4 MG/2 ML Vial IVP PRN ×2 (07:18→17:44)
[2017-12-26] MEDS: Pantoprazole 40 MG VIAL IVP SCH (09:44)
[2017-12-26] MEDS: Heparin 25,000 units/D5W 500 ML IVPB SCH (09:56)
[2017-12-26 10:04] LABS: ALT (SGPT) 18 U/L (8-55); AST (SGOT) 31 U/L (5-34); Albumin 2.5 g/dL (3.5-5.0); Alkaline Phosphatase 65 U/L (40-150); Bilirubin, Direct 0.5 mg/dL (0.1-0.3); Lipase 50 U/L (8-78)
--- NOTE | 2017-12-26 10:35 | PRG ---
DATE OF SERVICE: 12/26/2017 SUBJECTIVE: The patient is feeling much less anxious today, but still having nausea. Her pain is mo derate and well controlled. OBJECTIVE: VITAL SIGNS: Her temperature is 99, pulse 107, blood pressure 117/72. GENERAL: She looks better today. Color is good. She is up in a chair. HEENT: Otherwise, unremarkable. LUNGS: Clear. HEART: Tachycardic, but regular. ABDOMEN: Soft, nondistended. Incisions look good. GENITOURINARY: Her urine output is 2155. LABORATORY DATA: Her white count is 19.8, H&H is 8.3 and 25, platelet count of 311. Her PTT is 60. PT is 17. ASSESSMENT: Mesenteric venous thrombosis with splenic hemorrhage requiring splenectomy. She is doin g well, but she did have a slight drop in her H&H. PLAN: Repeat that in few hours to make sure that is not trending down. Tylenol for headache.
[2017-12-26] MEDS: Scopolamine 1.5 mg/72 hour Patch TOP PRN (11:24)
[2017-12-26] MEDS: Promethazine HCl 25 MG/ML VIAL IM/IV PRN (11:26)
[2017-12-26] MEDS: Acetaminophen 1,000 MG in Premix Bag 1 BAG IVPB PRN ×2 (11:36→17:59)
[2017-12-26 12:54] LABS: Hemoglobin 9.4 g/dL (12.0-16.0)
[2017-12-26] MEDS: POTASSIUM CHLORIDE IV SCH (15:09)
[2017-12-26] MEDS: [UNRECOGNIZED DRUG - OTHER] IV SCH (15:09)
[2017-12-26] MEDS: SODIUM ACETATE IV SCH (15:09)
[2017-12-26] MEDS: SODIUM CHLORIDE IV SCH (15:09)
--- NOTE | 2017-12-26 17:55 | PRG ---
DATE OF SERVICE: 12/26/2017 SUBJECTIVE: Ms. Mckinnon says she is feeling better. She is sitting up in the chair using her incentive spirometer. OBJECTIVE: VITAL SIGNS: Have been stable. LUNGS: Clear. HEART: Regular rhythm. ABDOMEN: Soft. Minimally tender, although coughing and using her spirometry. She says it makes her uncomfortable. I reviewed her thrombosis panel again actually with some clicking and reading in the computer, she does have a prothrombin [id number] mutation making her truly hypercoagulable which explained the problems that were having. She continues with anticoagulation. LABORATORY DATA: Electrolytes: Sodium 135, potassium 3.6, chloride 101, bicarbonate 32, BUN 17, creatinine 0.68. White count is 19.8, hemoglobin is 8.3 , platelets 311,000. IMPRESSION: 1. Status post mesenteric venous thrombosis. 2. Status post splenectomy. 3. Status post weight loss surgery. 4. Prothrombin gene mutation. There are still some of her hypercoagulable panel pending. I could not find a Factor V Leiden mutation, which would increase her risk of thrombosis further I suspect it is still pending as well. We will continue to follow. ROSA
[2017-12-26 18:42] LABS: Hemoglobin 7.8 g/dL (12.0-16.0)
[2017-12-27] MEDS: Acetaminophen 1,000 MG in Premix Bag 1 BAG IVPB PRN (00:18)
[2017-12-27] MEDS: Piperacillin/Tazobactam 3.375 GM in Sodium Chloride 0.9% 100 ML IVPB SCH ×4 (02:09→20:42)
[2017-12-27 04:27] LABS: INR-International Normal Ratio 1.3
[2017-12-27 04:45] LABS: Hemoglobin 5.2 g/dL (12.0-16.0)
[2017-12-27 05:11] LABS: Anion Gap 11 mmol/L (10-20); BUN (Urea Nitrogen) 17 mg/dL (7.0-18.7); Calc. Creatinine Clearance 191 mL/min (70-130); Calcium 8.2 mg/dL (7.8-10.44); Carbon Dioxide 29 mmol/L (22-29); Chloride 105 mmol/L (98-107); Estimated GFR-MDRD Greater than 90; Glucose 124 mg/dL (70-105); Potassium 3.6 mmol/L (3.5-5.1); Sodium 141 mmol/L (136-145)
[2017-12-27 05:45] LABS: Hemoglobin 8.1 g/dL (12.0-16.0); Platelet Count 407 thou/uL (130-400)
[2017-12-27] MEDS: D5 1/2 NS w/20 mEq KCL 1,000 ML IV SCH ×3 (06:41→17:29)
[2017-12-27] MEDS ORDERED: Heparin 25,000 units/D5W 500 ML IVPB SCH (06:45)
[2017-12-27] MEDS: Pantoprazole 40 MG VIAL IVP SCH (08:35)
[2017-12-27] MEDS: Ondansetron PF 4 MG/2 ML Vial IVP PRN ×2 (09:16→20:42)
[2017-12-27] MEDS: Promethazine HCl 25 MG/ML VIAL IM/IV PRN (10:45)
[2017-12-27] MEDS: Ketorolac Tromethamine 30 MG/ML VIAL IVP SCH ×2 (13:18→17:25)
[2017-12-27] MEDS: fentaNYL Citrate/PF 2,000 MCG in Sodium Chloride 0.9% 60 ML IV PRN (13:23)
--- NOTE | 2017-12-27 13:55 | PRG ---
DATE OF SERVICE: 12/27/2017 SUBJECTIVE: The patient reports she does still feel a little bit nauseated today, but it is better. Pain is better. She has not vomited. No bowel movements, possible small amount of gas. PHYSICAL EXAMINATION: VITAL SIGNS: Temperature is 98.7, pulse 99, blood pressure 118/71. GENERAL: She is up in a chair. She is a little bit pale. LUNGS: Clear. HEART: Regular rate and rhythm. ABDOMEN: Soft, nondistended. Incisions look good. No evidence of infection. Urine output is 3150 last 24 hours. LABORATORY DATA: Her white count is , hemoglobin and hematocrit 8.1 and 24.7, platelet count is 407. Her PTT is 48.5, her PT is 16, INR of 1.3. ASSESSMENT: Slow improvement. PLAN: We will add Coumadin and start her on bariatric clear liquids.
[2017-12-27] MEDS: [UNRECOGNIZED DRUG - OTHER] IV SCH (15:02)
[2017-12-27] MEDS: POTASSIUM CHLORIDE IV SCH (15:02)
[2017-12-27] MEDS: SODIUM ACETATE IV SCH (15:02)
[2017-12-27] MEDS: SODIUM CHLORIDE IV SCH (15:02)
[2017-12-27] MEDS: Warfarin Sodium 5 MG TAB PO SCH (17:28)
--- NOTE | 2017-12-27 19:03 | PRG ---
DATE OF SERVICE: 12/27/2017 SUBJECTIVE: Ms. Mckinnon has no complaints. She is feeling a little better each day. OBJECTIVE: VITAL SIGNS: She is afebrile, heart rate is 98, respiratory is 22, oximetry is 93 on room air, blood pressure 134/92. LUNGS: Clear. HEART: Regular rhythm. ABDOMEN: Still mildly tender. Intake and output positive 3150. IMPRESSION: 1. Status post mesenteric venous clots. 2. Status post splenectomy. 3. Prothrombin gene mutation creating a hypercoagulable state. 4. Status post weight loss surgery. PLAN: Continue gradual anticoagulation per Dr. Paulson. Continue to follow with the other physicians caring for.
[2017-12-27] MEDS: Heparin 25,000 units/D5W 500 ML IV SCH (21:55)
[2017-12-28] MEDS: Ketorolac Tromethamine 30 MG/ML VIAL IVP SCH ×5 (00:05→23:26)
--- NOTE | 2017-12-28 08:20 | PRG ---
DATE OF SERVICE: 12/28/2017 Purpose of this note the computer system is down, so cost recorder and lab and any of the recent clinic al data is not available to me at this time. SUBJECTIVE: The patient reports she is still having quite a bit of left upper quadrant abdominal brandon n. She is still having some nausea. She has been lying very still. She still has a urinary cathete r in place. She is passing some flatus. OBJECTIVE: VITAL SIGNS: The nurse reports that her temperature has been low grade fever at 100, T-max currently 99. Her heart rate is 106, and blood pressure is fine. GENERAL: She is awake, but again splinting quite a bit and lying still. HEENT: Unremarkable. LUNGS: Clear. HEART: Regular rate and rhythm. ABDOMEN: Soft. The incisions look good. There is no evidence of cellulitis or drainage. ASSESSMENT: Low-grade fever, tachycardia, nausea. PLAN: I recommend CT scan of abdomen and pelvis with a small volume of oral contrast. Repeat CBC, u rinalysis. Discontinue [place].
[2017-12-28] MEDS ORDERED: D5 1/2 NS w/20 mEq KCL 1,000 ML ONE (10:27)
[2017-12-28] MEDS ORDERED: Ketorolac Tromethamine 30 MG/ML VIAL ONE (10:28)
[2017-12-28] MEDS: D5 1/2 NS w/20 mEq KCL 1,000 ML IV SCH ×3 (10:30→16:58)
--- NOTE | 2017-12-28 10:52 | PRG ---
DATE OF SERVICE: 12/28/2017 Ms. Mckinnon is sitting up in a chair already this morning. She is in no distress. PHYSICAL EXAMINATION: VITAL SIGNS: Her vital signs have been stable, I am told. LUNGS: Her lungs are clear. CARDIOVASCULAR: Regular rhythm. ABDOMEN: Soft, minimally tender, still on heparin drip. LABORATORY: Labs are unavailable because the computer system is down. IMPRESSION: 1. Prothrombin gene mutation with a portal vein and mesenteric vein thrombus. 2. Status post splenectomy. 3. Status post weight loss surgery, clinically stable. PLAN: Continue supportive care, physical therapy and gradual increase of her anticoagulation per madalyn calle.
[2017-12-28] MEDS: Heparin 25,000 units/D5W 500 ML IV SCH (11:15)
[2017-12-28] MEDS: Piperacillin/Tazobactam 3.375 GM in Sodium Chloride 0.9% 100 ML IVPB SCH ×3 (11:21→20:39)
[2017-12-28 12:32] LABS: Bilirubin Negative (Negative); Blood, Urine Negative (Negative); Clarity Clear (Clear); Glucose, Urine (Dipstick) Negative (Negative); Leukocyte Small (Negative); Nitrite Negative (Negative); Protein, Urine (Dipstick) Negative (Neg-Trace); Specific Gravity, Urine 1.017 (1.002-1.036); pH, Urine 7.5 (5.0-9.0)
[2017-12-28 12:32] LABS: Anion Gap 11 mmol/L (10-20); BUN (Urea Nitrogen) 19 mg/dL (7.0-18.7); Calc. Creatinine Clearance 178 mL/min (70-130); Calcium 8.2 mg/dL (7.8-10.44); Carbon Dioxide 27 mmol/L (22-29); Chloride 105 mmol/L (98-107); Estimated GFR-MDRD 87; Glucose 120 mg/dL (70-105); Potassium 3.5 mmol/L (3.5-5.1); Sodium 139 mmol/L (136-145)
[2017-12-28 12:33] LABS: Bacteria/HPF None Seen HPF (None Seen); Hyaline Casts/LPF 0-3 HYALINE CAST LPF (0-3 Hyaline); RBC/HPF 0-3 HPF (0-3); Squamous Epithelial 0-3 HPF (0-3); WBC/HPF 0-3 HPF (0-3)
--- NOTE | 2017-12-28 12:47 | CT ---
CT ABDOMEN AND PELVIS WITH IV AND ORAL CONTRAST: HISTORY: Abdominal pain. Splenic bleeding with splenectomy. COMPARISON: 12/21/2017. FINDINGS: A small amount of bilateral pleural fluid and bibasilar lung atelectasis. Postoperative changes left upper quadrant consistent with recent splenectomy. A small amount of free fluid remains within the left upper quadrant and scattered about the abdomen and pelvis. Postoperative changes of the stomach are also evident. Remaining solid organs are intact. Urinary bladder contains a small amount of ga s, likely related to recent instrumentation. No evidence of bowel obstruction. IMPRESSION: 1. Postoperative changes consistent with recent splenectomy. A small amount of fluid remains. No e vidence of complication. 2. Small bilateral pleural effusions and bibasilar lung atelectasis. 3. No evidence of ongoing hemorrhage. POS: H
[2017-12-28 13:09] LABS: INR-International Normal Ratio 1.2; Prothrombin Time 15.6 SEC (12.0-14.7)
[2017-12-28] MEDS ORDERED: Iopamidol 370 76% 100 ML VIAL ONE (15:02)
[2017-12-28] MEDS: Pantoprazole 40 MG VIAL IVP SCH (15:03)
[2017-12-28] MEDS: SODIUM ACETATE IV SCH (15:13)
[2017-12-28] MEDS: SODIUM CHLORIDE IV SCH (15:13)
[2017-12-28] MEDS: [UNRECOGNIZED DRUG - OTHER] IV SCH (15:13)
[2017-12-28] MEDS: POTASSIUM CHLORIDE IV SCH (15:13)
[2017-12-28] MEDS: Warfarin Sodium 5 MG TAB PO SCH (16:58)
[2017-12-28 17:01] LABS: White Blood Cell (WBC) Count 15.5 thou/uL (4.8-10.8)
[2017-12-28 17:02] LABS: Mean Corpuscular HGB CONC 30.2 g/dL (32.0-36.0); Mean Corpuscular Hemoglobin 28.5 pg (27.0-31.0); Mean Corpuscular Volume 94.6 fL (78.0-98.0); Mean Platelet Volume 8.6 fL (7.4-10.4); Platelet Count 495 thou/uL (130-400); RBC Distribution Width 13.9 % (11.5-14.5); Red Blood Cell (RBC) Count 2.79 mill/uL (4.20-5.40)
[2017-12-28 17:03] LABS: Band 2 % (5-11); Eosinophils 5 % (0-10); Lymphocytes 16 % (21-51); Metamyelocyte 1 % (0-0); Microcytosis SLIGHT = 6-15 cells (100X) (0-5/hpf); Monocytes 7 % (0-10); Myelocyte 2 % (0-0); Polychromasia SLIGHT = 2-3 cells (100X) (0-2/hpf)
[2017-12-28 18:35] LABS: Neutrophil 67 % (42-75)
[2017-12-28] MEDS: fentaNYL Citrate/PF 2,000 MCG in Sodium Chloride 0.9% 60 ML IV PRN (23:30)
[2017-12-29] MEDS: Heparin 25,000 units/D5W 500 ML IV SCH (01:47)
[2017-12-29] MEDS: Piperacillin/Tazobactam 3.375 GM in Sodium Chloride 0.9% 100 ML IVPB SCH ×4 (01:47→20:40)
[2017-12-29] MEDS: D5 1/2 NS w/20 mEq KCL 1,000 ML IV SCH ×2 (01:49→09:18)
[2017-12-29 05:53] LABS: INR-International Normal Ratio 1.3; Prothrombin Time 16.3 SEC (12.0-14.7)
[2017-12-29] MEDS: Ketorolac Tromethamine 30 MG/ML VIAL IVP SCH (05:58)
[2017-12-29 06:10] LABS: Anion Gap 10 mmol/L (10-20); BUN (Urea Nitrogen) 19 mg/dL (7.0-18.7); Calc. Creatinine Clearance 179 mL/min (70-130); Calcium 8.2 mg/dL (7.8-10.44); Carbon Dioxide 28 mmol/L (22-29); Chloride 105 mmol/L (98-107); Estimated GFR-MDRD 87; Glucose 105 mg/dL (70-105); Potassium 3.5 mmol/L (3.5-5.1); Sodium 139 mmol/L (136-145)
[2017-12-29 08:05] LABS: Hemoglobin 7.6 g/dL (12.0-16.0); Platelet Count 521 thou/uL (130-400)
[2017-12-29] MEDS: Pantoprazole 40 MG VIAL IVP SCH (09:04)
--- NOTE | 2017-12-29 14:35 | PRG ---
DATE OF SERVICE: 12/29/2017 SERVICE: Pulmonary Medicine. INTERVAL HISTORY: The patient has actually been a little bit more active today. She denies any curr ent chest pain, fevers, or chills. She is asking about the results of the CT of the belly that she h ad yesterday. Otherwise, there has been no interval change to her condition. PHYSICAL EXAMINATION: VITAL SIGNS: Afebrile, pulse 94, blood pressure 119/81, respirations 16, saturation 96% on room air. GENERAL: The patient is awake, alert, no apparent distress. LUNGS: Excellent air entry. Minimal crackles are present. There is no prolonged expiratory phase o r wheezing appreciated. HEART: Normal rate, regular. ABDOMEN: Soft, nontender, nondistended. Bowel sounds are positive. MUSCULOSKELETAL: No cyanosis or clubbing. There is 2-3+ pitting in the bilateral lower extremities. NEUROLOGIC: Grossly nonfocal. LABORATORY DATA: Hemoglobin 7.6 and roughly stable. Basic metabolic profile is essentially unremark able with BUN of 19, creatinine of 0.73. Potassium 3.5. She is only heterozygous for prothrombin ge ne mutation. IMAGING DATA: CT of the abdomen and pelvis demonstrates postoperative changes consistent with recent splenectomy. There is a large amount of fluid. Free fluid still present. No evidence of complicat ion currently. Small bilateral pleural effusions and atelectasis of the lung is identified. No evid ence of ongoing hemorrhage. ASSESSMENT: 1. Acute blood loss anemia, resolved. Prothrombin gene mutation, heterozygote with portal vein and mesenteric vein thrombosis. 2. Status post weight loss surgery and subsequent splenectomy. 3. Hypokalemia. 4. Volume overload. DISCUSSION AND PLAN: I will start dosing the patient with a daily dose of Lasix. Potassium will be replaced. Pulmonary or Critical Care will continue to follow while the patient remains in this locat ion.
[2017-12-29] MEDS: SODIUM CHLORIDE IV SCH (14:47)
[2017-12-29] MEDS: SODIUM ACETATE IV SCH (14:47)
[2017-12-29] MEDS: POTASSIUM CHLORIDE IV SCH (14:47)
[2017-12-29] MEDS: [UNRECOGNIZED DRUG - OTHER] IV SCH (14:47)
[2017-12-29] MEDS: Scopolamine 1.5 mg/72 hour Patch TOP PRN (15:05)
[2017-12-29] MEDS ORDERED: traMADol HCl 50 MG TAB PO PRN (15:49)
[2017-12-29] MEDS: Warfarin Sodium 5 MG TAB PO SCH (17:22)
--- NOTE | 2017-12-29 17:45 | PRG ---
DATE OF SERVICE: 12/29/2017 SUBJECTIVE: Marlee Mckinnon is doing well today. She is tolerating liquids. She is not having naus ea. She has passed flatus. She continues on TPN and heparin drip. TKO IV fluids, SLIVER LAP TENDER pain pump. S he complains of ankle edema. Lasix has been ordered for her. PHYSICAL EXAMINATION: LUNGS: Clear to auscultation. CARDIAC: Regular rate and rhythm without murmur or gallop. ABDOMEN: Soft, nontender. LABORATORY DATA: PT 16, INR 1.3, PTT 79.5, sodium 139, potassium 3.5, chloride 105, BUN 19, hemoglob in 7.6, platelet count 521,000. ASSESSMENT AND PLAN: 1. Status post splenectomy with open control of hemorrhage. Doing well. We will increase her to fu ll liquids. After weaning her TPN, discontinue Accu-Cheks. 2. Discontinue SLIVER LAP TENDER, start her on oral analgesics. 3. Prothrombin deficiency on anticoagulation. Continue heparin drip. Monitor CBC. Continue Coumad in and await therapeutic levels. 4. fluid overloaded. We will give a dose of Lasix. Discontinue her SLIVER LAP TENDER, IV fluids and TPN. We will help her fluid mobility.
[2017-12-29] MEDS: Ketorolac Tromethamine 30 MG/ML VIAL IVP PRN (20:39)
[2017-12-29] MEDS: Acetaminophen 500 MG TAB PO PRN (21:09)
[2017-12-30] MEDS: Piperacillin/Tazobactam 3.375 GM in Sodium Chloride 0.9% 100 ML IVPB SCH ×4 (04:12→21:31)
[2017-12-30] MEDS: Ketorolac Tromethamine 30 MG/ML VIAL IVP PRN ×2 (04:20→21:47)
[2017-12-30] MEDS: Heparin 25,000 units/D5W 500 ML IV SCH ×2 (04:29→21:46)
[2017-12-30 06:32] LABS: INR-International Normal Ratio 1.3; Prothrombin Time 16.1 SEC (12.0-14.7)
[2017-12-30 06:33] LABS: PTT 65.1 SEC (22.9-36.1)
[2017-12-30 06:36] LABS: Anion Gap 9 mmol/L (10-20); BUN (Urea Nitrogen) 20 mg/dL (7.0-18.7); Calc. Creatinine Clearance 179 mL/min (70-130); Calcium 8.4 mg/dL (7.8-10.44); Carbon Dioxide 27 mmol/L (22-29); Chloride 107 mmol/L (98-107); Estimated GFR-MDRD 87; Glucose 98 mg/dL (70-105); Potassium 3.3 mmol/L (3.5-5.1); Sodium 140 mmol/L (136-145)
[2017-12-30 07:31] LABS: Band 9 % (5-11); Eosinophils 7 % (0-10); Hemoglobin 7.7 g/dL (12.0-16.0); Lymphocytes 31 % (21-51); MDiff Complete? YES; Mean Corpuscular HGB CONC 31.4 g/dL (32.0-36.0); Mean Corpuscular Hemoglobin 29.2 pg (27.0-31.0); Mean Corpuscular Volume 93.2 fL (78.0-98.0); Mean Platelet Volume 8.6 fL (7.4-10.4); Monocytes 6 % (0-10); Neutrophil 47 % (42-75); Nucleated RBC 2 % (0); Platelet Count 569 thou/uL (130-400); RBC Distribution Width 14.3 % (11.5-14.5); Red Blood Cell (RBC) Count 2.63 mill/uL (4.20-5.40)
--- NOTE | 2017-12-30 07:45 | PRG ---
DATE OF SERVICE: 12/30/2017 SUBJECTIVE: Marlee Mckinnon is doing well today. She has been moved to the surgical floor. She is tolerating her full liquid. She is ready for a soft diet. She is sitting up in a chair this morning when I saw her. OBJECTIVE VITAL SIGNS: Temperature 98.5, 93, 111/75. LUNGS: Clear to auscultation. CARDIAC: Regular rate and rhythm without murmur or gallop. ABDOMEN: Soft, nontender. LABORATORY: Pending today. Coagulation studies are pending today. Continue heparin drip until Coum yadi is effective. Discontinue TPN. Advance to bariatric diet.
[2017-12-30] MEDS: Ondansetron PF 4 MG/2 ML Vial IVP PRN ×3 (08:46→21:47)
[2017-12-30] MEDS: traMADol HCl 50 MG TAB PO PRN (08:47)
[2017-12-30] MEDS: Heparin 10,000 UNITS/ 10 ML VIAL SLOW IVP SCH (09:29)
[2017-12-30 14:08] LABS: PTT 135.8 SEC (22.9-36.1)
--- NOTE | 2017-12-30 16:03 | PRG ---
DATE OF SERVICE: 12/30/2017 SERVICE: Pulmonary Medicine. INTERVAL HISTORY: The patient has multiple complaints today. The one that she is most focused on is that she has a discomfort that is odd to describe in the mid sternal region. Whenever she tries to swallow something, she ends up with a discomfort. Otherwise, she also notes having fevers, a little bit of a cough that is nonproductive. Nursing reports no overnight events. She has not walked aroun d today. PHYSICAL EXAMINATION: VITAL SIGNS: Afebrile currently. Her T-max overnight was 100.0. Pulse 100, blood pressure 146/82, respirations 16, saturation 93% on room air. GENERAL: The patient is awake, alert, in no apparent distress. LUNGS: Decent air entry. Dependent crackles are present. There is no prolonged expiratory phase or wheezing. HEART: Normal rate and regular. ABDOMEN: Soft, nontender, nondistended. Bowel sounds are positive. MUSCULOSKELETAL: No cyanosis or clubbing. There is 1+ pitting in the bilateral lower extremities. NEUROLOGIC: Grossly nonfocal. LABORATORY DATA: WBC 19.0, hemoglobin 7.7 and roughly stable, and platelets 569,000 and up-trending. Band count has increased a little bit to 9%. Potassium 3.3 and stable. Basic metabolic profile is , otherwise, unremarkable. ASSESSMENT: 1. Acute blood loss anemia, resolved. 2. Portal vein and mesenteric vein thrombosis, secondary to prothrombin gene mutation and recent madalyn luc, heterozygote. 3. Status post weight loss surgery and subsequent splenectomy. 4. Hypokalemia. 5. Volume overload, DISCUSSION AND PLAN: I will give the patient a single dose of Lasix. Potassium will be replaced her e. I will check a magnesium with tomorrow morning's laboratories. Pulmonary Critical Care will cont inue to follow along for the time being.
[2017-12-30] MEDS: Warfarin Sodium 5 MG TAB PO SCH (16:24)
[2017-12-30] MEDS ORDERED: Furosemide 20 MG/2 ML VIAL SLOW IVP SCH (16:30)
[2017-12-30] MEDS ORDERED: Warfarin Sodium 5 MG TAB PO SCH (17:30)
[2017-12-31] MEDS: Heparin 10,000 UNITS/ 10 ML VIAL SLOW IVP SCH (00:54)
[2017-12-31] MEDS: Ketorolac Tromethamine 30 MG/ML VIAL IVP PRN ×2 (03:52→20:48)
[2017-12-31] MEDS: Piperacillin/Tazobactam 3.375 GM in Sodium Chloride 0.9% 100 ML IVPB SCH ×4 (03:52→22:23)
[2017-12-31] MEDS: Ondansetron PF 4 MG/2 ML Vial IVP PRN ×3 (03:53→16:53)
[2017-12-31] MEDS ORDERED: Potassium Chloride 20 MEQ TAB PO SCH (07:00)
[2017-12-31 08:14] LABS: #Basophils 0.1 thou/uL (0.0-0.2); #Eosinphils 0.8 thou/uL (0.0-0.7); #Lymphocytes 3.9 thou/uL (1.20-3.40); #Monocytes 1.4 thou/uL (0.11-0.59); #Neutrophils 8.7 thou/uL (1.40-6.50); %Basophils 0.4 % (0.0-1.0); %Eosinophils 5.5 % (0.0-10.0); %Lymphocytes 26.4 % (21.0-51.0); %Monocytes 9.2 % (0.0-10.0); %Neutrophils 58.4 % (42.0-75.0); Hemoglobin 7.8 g/dL (12.0-16.0); Mean Corpuscular HGB CONC 32.3 g/dL (32.0-36.0); Mean Corpuscular Hemoglobin 30.3 pg (27.0-31.0); Mean Corpuscular Volume 93.9 fL (78.0-98.0); Mean Platelet Volume 8.4 fL (7.4-10.4); Platelet Count 600 thou/uL (130-400); RBC Distribution Width 14.4 % (11.5-14.5); Red Blood Cell (RBC) Count 2.57 mill/uL (4.20-5.40); White Blood Cell (WBC) Count 14.8 thou/uL (4.8-10.8)
[2017-12-31 08:29] LABS: INR-International Normal Ratio 1.3; Prothrombin Time 16.2 SEC (12.0-14.7)
[2017-12-31] MEDS ORDERED: Furosemide 20 MG/2 ML VIAL SLOW IVP SCH (09:00)
[2017-12-31] MEDS: Heparin 25,000 units/D5W 500 ML IV SCH ×2 (10:50→23:57)
[2017-12-31] MEDS: Warfarin Sodium 7.5 MG TAB PO SCH (16:20)
[2017-12-31] MEDS ORDERED: Metoclopramide 10 MG/10 ML UDCUP PO PRN (17:59)
[2017-12-31] MEDS: Lactated Ringer's 1,000 ML IV SCH (18:02)
--- NOTE | 2017-12-31 21:40 | PRG ---
DATE OF SERVICE: 12/31/2017 HISTORY OF PRESENT ILLNESS: Marlee Mckinnon is doing well today except that she experienced naus ea and vomiting after taking potassium supplement. She states that since her surgery, she has had nu merous admissions for fluid hydration for nausea. She has trouble even take in liquids. She does no t like liquids. She had bowel function and stool. She denies having increased abdominal pain. She was made n.p.o. after vomiting today. She is 5 weeks status post sleeve gastrectomy. PHYSICAL EXAMINATION: VITAL SIGNS: Temperature 98.8 degrees, 95, 124/74. White count 14, hemoglobin 7.8, stable. Basic m etabolic profile yesterday was unremarkable except potassium 3.3. LUNGS: Clear to auscultation. HEART: Regular. CARDIAC: Regular rate and rhythm without murmur or gallop. ABDOMEN: Soft, nontender. Surgical wounds well healed. EXTREMITIES: Unremarkable. ASSESSMENT AND PLAN: Vomiting. Plan, upper GI contrast study in the morning. We will use more volu me than usual after sleeve gastrectomy as she is 5 weeks postoperative. She may need a future endosc opy. Continue full liquids for now.
--- NOTE | 2017-12-31 22:09 | PRG ---
DATE OF SERVICE: 12/31/2017 SERVICE: Pulmonary Medicine. INTERVAL HISTORY: The patient is doing outstanding from a respiratory standpoint. She is breathing well. She continues to have odd discomfort in the middle of her chest. Outside of that, she feels l oleg she has a little bit better energy today. She denies having any cough. She has dyspnea when she gets around, but at rest, she no longer has any problems. Her lower extremity swelling has improved with a little dose of Lasix yesterday. PHYSICAL EXAMINATION: VITAL SIGNS: Afebrile, pulse 124/74, respirations 18, saturation 96% on room air. GENERAL: The patient is awake, alert, no apparent distress. LUNGS: Excellent air entry. Dependent crackles are minimal. HEART: Normal rate, regular. ABDOMEN: Soft, nontender, nondistended. Bowel sounds are positive. MUSCULOSKELETAL: No cyanosis or clubbing. There is trace 1+ pitting in the bilateral lower extremit ies, which is improved. NEUROLOGIC: Grossly nonfocal. LABORATORY DATA: WBC 14.8, hemoglobin 7.8, platelets 600,000. Potassium 3.3. Basic metabolic profi le is otherwise unremarkable. Blood sugars ranged from 92 to 138. ASSESSMENT: 1. Acute blood loss anemia, stable. 2. Portal and mesenteric vein thrombosis secondary to recent surgery, and prothrombin gene mutation (heterozygote). 3. Status post weight loss surgery and subsequent splenectomy. 4. Hypokalemia. DISCUSSION AND PLAN: Her volume status is much improved. Since she is off the TPN, we will allow he r to auto diurese through time. I will replace the potassium today with a total of 80 mEq. Pulmonar y Critical Care will continue to follow along while the patient remains in house for the time being. We will check a magnesium with the morning laboratories.
[2018-01-01] MEDS: Piperacillin/Tazobactam 3.375 GM in Sodium Chloride 0.9% 100 ML IVPB SCH ×4 (03:42→20:41)
[2018-01-01] MEDS: Lactated Ringer's 1,000 ML IV SCH ×2 (04:43→18:34)
[2018-01-01 06:23] LABS: INR-International Normal Ratio 1.5; Prothrombin Time 18.1 SEC (12.0-14.7)
[2018-01-01 06:24] LABS: PTT 80.2 SEC (22.9-36.1)
[2018-01-01 06:39] LABS: Anion Gap 10 mmol/L (10-20); BUN (Urea Nitrogen) 14 mg/dL (7.0-18.7); Calc. Creatinine Clearance 142 mL/min (70-130); Calcium 8.5 mg/dL (7.8-10.44); Carbon Dioxide 26 mmol/L (22-29); Chloride 107 mmol/L (98-107); Estimated GFR-MDRD 65; Glucose 86 mg/dL (70-105); Magnesium 2.4 mg/dL (1.6-2.6); Phosphorus 4.1 mg/dL (2.3-4.7); Potassium 3.9 mmol/L (3.5-5.1); Sodium 139 mmol/L (136-145)
--- NOTE | 2018-01-01 09:00 | PRG ---
DATE OF SERVICE: 01/01/2018 The patient is slowly getting better. She is still having trouble holding down food. PHYSICAL EXAMINATION: VITAL SIGNS: Temperature 98.6, pulse 85, respirations 16, O2 sat 97% on 2 liters. HEENT: Unremarkable. NECK: No JVD. LUNGS: Clear. CARDIOVASCULAR: S1, S2 regular. ABDOMEN: Soft. EXTREMITIES: No edema. LABORATORY DATA: White blood cell count 14.8, hematocrit 24.2, platelet count 600. INR is 1.5, PTT is 80. Sodium 139, potassium 3.9, BUN 14, creatinine 0.9, glucose 65. ASSESSMENT: 1. Status post acute blood loss. 2. Portal, mesenteric, splenic vein thrombosis. 3. Prothrombin gene mutation. 4. Status post gastric sleeve surgery. PLAN: Basically supportive at this point. Awaiting INR 2.0 before discontinuing heparin, Lasix has been stopped. Nutrition management per General Surgery team.
[2018-01-01] MEDS: Ketorolac Tromethamine 30 MG/ML VIAL IVP PRN (11:05)
--- NOTE | 2018-01-01 11:11 | PRG ---
DATE OF SERVICE: 01/01/2018 Ms. Marlee Mckinnon is doing well today. She has continued problems gagging with pills and swallowin g problems and nausea. We had advanced her to a bariatric soft diet, but taking her back to a bariat kenneth full liquid diet due to these complaints. She, however, is passing flatus and stool. This cruz stoddard, I received a call from her nurse stating that she could not swallow Protonix and could we give t hat to her parenterally. Instead we will order that as an elixir another PPI. I have talked to the patient and her mother extensively regarding occasional nausea associated with sleeve gastrectomy and add on to that complications that she has suffered requiring splenectomy delaying gastric sleeve emp tying and also noting that postoperatively intraoperatively Dr. Paulson performed upper endoscopy and p ostoperatively, the next day she had a swallow and there should be no anatomical problems; however, t hey want to proceed with a contrast swallow which I have ordered today. PHYSICAL EXAMINATION: LUNGS: Clear to auscultation. CARDIAC: Regular rate and rhythm without murmur or gallop. ABDOMEN: Soft, nontender. Surgical wounds look good. VITAL SIGNS: Temperature 98.6, 75, 97% sat, 97/56. LABORATORY: White count 14, hemoglobin 7.8 (stable). Basic metabolic profile this morning is normal . ASSESSMENT AND PLAN: Persistent nausea and gagging after sleeve gastrectomy. We will obtain contras t swallow this morning. Await these results. Continue bariatric full liquids. Change PPI to an ana xir. She has a hypercoagulable state and is on a heparin drip. Her Coumadin has been increased from 5 mg a day to 7.5 mg and her PT has increased from 16 yesterday to 18 today and INR increased from 1 .3 to 1.5 today. Continue heparin drip. Await therapeutic levels of her Coumadin. Continue ambulat ion. Evaluate swallowing. Dr. Paulson to return tomorrow.
--- NOTE | 2018-01-01 11:54 | RAD ---
SINGLE CONTRAST UPPER GI: CLINICAL HISTORY: Status post gastric sleeve with dysphagia, early satiety, and abdominal pain. FINDINGS: The patient was administered thin barium contrast with real-time fluoroscopy subsequently performed. There is appropriate passage of thin liquid barium through the esophagus and into the remnant gastri c lumen, which traverses into the proximal small bowel. The proximal small bowel demonstrates no galdino dence of abnormal dilatation. 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 There is no abnormal hold-up of contrast. No evidence of a hiatal hernia or significant re flux. There is no abnormal leakage of contrast from the confines of the postoperative gastric lumen. IMPRESSION: No abnormal hold-up of thin liquid barium, or evidence of abnormal leakage. There is appropriate con trast passage through the esophagus and postoperative gastric lumen and into the nonobstructed proxim al small bowel. POS: CHAKA
[2018-01-01] MEDS: Heparin 25,000 units/D5W 500 ML IV SCH (13:28)
[2018-01-01] MEDS: Warfarin Sodium 7.5 MG TAB PO SCH (17:16)
[2018-01-01] MEDS: traMADol HCl 50 MG TAB PO PRN (19:22)
[2018-01-01] MEDS: Famotidine 40 MG/5 ML Oral Suspension PO SCH (20:41)
[2018-01-02] MEDS: Piperacillin/Tazobactam 3.375 GM in Sodium Chloride 0.9% 100 ML IVPB SCH ×4 (04:53→21:05)
[2018-01-02] MEDS: Heparin 25,000 units/D5W 500 ML IV SCH (04:53)
[2018-01-02 05:19] LABS: INR-International Normal Ratio 1.8; Prothrombin Time 21.1 SEC (12.0-14.7)
[2018-01-02] MEDS: Lactated Ringer's 1,000 ML IV SCH ×2 (05:24→21:05)
[2018-01-02] MEDS: Ondansetron PF 4 MG/2 ML Vial IVP PRN (08:35)
[2018-01-02] MEDS: Famotidine 40 MG/5 ML Oral Suspension PO SCH ×2 (09:07→21:04)
[2018-01-02] MEDS ORDERED: Meningococcal Vaccine 0.5ML VIAL (MENACTRA) IM ONE (09:43)
[2018-01-02] MEDS ORDERED: Haemoph B Posysac Conj-Meng 0.5 ML VIAL IM ONE (09:43)
[2018-01-02] MEDS ORDERED: Apixaban 5 MG TAB PO SCH (09:45)
[2018-01-02] MEDS ORDERED: Acthib 0.5 ML VIAL IM ONE (10:30)
--- NOTE | 2018-01-02 10:35 | PRG ---
DATE OF SERVICE: 01/02/2018 SUBJECTIVE: The patient is doing well except for some nausea when she eats. OBJECTIVE: VITALS: On exam, temperature is 98.5, pulse 86, respiration rate 16, O2 sat 92%, blood pressure 111/ 78. HEENT: Unremarkable. NECK: No JVD. CHEST: Clear, but wheezing. CARDIAC: S1 and S2 regular. ABDOMEN: Soft. EXTREMITIES: No edema. LABORATORY DATA: Her INR today is 1.8. ASSESSMENT: 1. Mesenteric splenic vein and portal vein thrombosis. 2. Status post splenic bleeding. PLAN: INR is close to therapeutic. There are no acute pulmonary issues at this time. We will sign off the case. Please recall if further assistance needed.
--- NOTE | 2018-01-02 11:32 | PRG ---
DATE OF SERVICE: 01/02/2018 SUBJECTIVE: The patient reports she is feeling a little better. She is tolerating a little bit more of the full liquids. Still having some nausea, not taking much n.p.o. PHYSICAL EXAMINATION: VITAL SIGNS: Her temperature is 98.4, pulse 88, blood pressure 160/71. She looks fine. ABDOMEN: Looks good. The incisions are dry and no erythema. ASSESSMENT: I discussed her case with Dr. Avalos in Pulmonary, who feels that she should be better served with Eliquis. We discussed the fact that she had a bleed on a previous similar medication, bu t he feels that since the bleeding risk is minimal now, she should be fine to go on to that. So, we will go ahead and start that and see if she tolerates it, and if so, we will stop the heparin and the Coumadin. Also, I will plan on getting a calorie count to see where we were at on, how much she has taken in by mouth.
[2018-01-02 12:06] VITALS: BMI 38.9
[2018-01-02] MEDS: traMADol HCl 50 MG TAB PO PRN (16:11)
[2018-01-02] MEDS: Apixaban 5 MG TAB PO SCH (21:04)
[2018-01-03] MEDS: Piperacillin/Tazobactam 3.375 GM in Sodium Chloride 0.9% 100 ML IVPB SCH ×4 (04:50→21:37)
[2018-01-03 05:19] LABS: INR-International Normal Ratio 2.3; Prothrombin Time 25.1 SEC (12.0-14.7)
[2018-01-03] MEDS: Lactated Ringer's 1,000 ML IV SCH ×2 (07:41→21:37)
[2018-01-03] MEDS: Apixaban 5 MG TAB PO SCH ×2 (09:23→20:47)
[2018-01-03] MEDS: Famotidine 40 MG/5 ML Oral Suspension PO SCH ×2 (09:24→20:48)
[2018-01-03] MEDS: Ondansetron PF 4 MG/2 ML Vial IVP PRN ×2 (09:25→14:28)
[2018-01-03] MEDS ORDERED: Meningococcal Vaccine 0.5ML VIAL (MENACTRA) IM ONE (12:15)
--- NOTE | 2018-01-03 13:32 | PRG ---
DATE OF SERVICE: 01/03/2018 SUBJECTIVE: The patient says she is feeling better, less pain, less nausea, started to be able to to lerate more p.o. fluids. PHYSICAL EXAMINATION: VITAL SIGNS: Her temperature is 97.9, pulse 93, blood pressure 126/69. She had a bowel movement. She is tolerating the Eliquis well. ASSESSMENT: Improved. PLAN: When she is able to tolerate enough to sustain her nutritional needs, we will discharge her ho mn.
[2018-01-03] MEDS: Acetaminophen 500 MG TAB PO PRN (14:27)
[2018-01-04] MEDS: Piperacillin/Tazobactam 3.375 GM in Sodium Chloride 0.9% 100 ML IVPB SCH ×2 (03:35→10:01)
[2018-01-04] MEDS: Lactated Ringer's 1,000 ML IV SCH (03:37)
[2018-01-04 05:23] LABS: Hemoglobin 9.6 g/dL (12.0-16.0); Platelet Count 813 thou/uL (130-400)
[2018-01-04] MEDS: Apixaban 5 MG TAB PO SCH (08:36)
[2018-01-04] MEDS: Famotidine 40 MG/5 ML Oral Suspension PO SCH (08:36)
[2018-01-04 11:42] VITALS: BP 120/75; TEMP 98.8
--- NOTE | 2018-01-04 12:36 | DIS ---
DISCHARGE DIAGNOSES: Mesenteric venous thrombosis, splenic vein thrombosis, portal vein thrombosis, splenic hemorrhage, hypercoagulable state. PROCEDURES DURING ADMISSION: Laparoscopic splenectomy open control of bleeding. Several CT scans, u pper GI series. HOSPITAL COURSE: The patient was admitted. An initial CT scan showed a clot in her a splenic vein, superior mesenteric vein and portal vein. She was started on anticoagulation. Hematology was consul prieto. They recommended Eliquis, which she was started on. She was doing well and then she had an epi sode of severe abdominal pain and hypotension. She was found to be hemorrhaging. She was taken to t operating room where she underwent splenectomy, but she was still on the Xarelto. She then was ta maira off the Xarelto switched to a heparin drip because of bleeding from the bed we had to open her up to put stitches in the splenic bed. Slowly she got better. She was switched to Eliquis. She is to lerating that well. She is doing well with no pain, tolerating a full liquid diet. She is discharge d home in good condition on the Eliquis, hydrocodone, Zofran. She will follow up with me in 2 weeks, as well as with Dr. Raymundo in Hematology.
== END 2018-01-04 11:50 | disposition home or self-care (01) | DRG 982 ==
LOC: SCSER 15:55 → ERS 19:10 → SURG A 20:29 → IMCU/EMU 12-20 23:04 → CCU 12-23 20:33 → IMCU/EMU 12-25 20:00 → SJJU 12-29 18:23
PROVIDERS: ADMIT Surgery; ATTEND Surgery
PROC: 3E0436Z Introduction of Nutritional Substance into Central Vein, Percutaneous Approach (ICD-10-PCS; 2017-12-16)
PROC: 02H633Z Insertion of Infusion Device into Right Atrium, Percutaneous Approach (ICD-10-PCS; 2017-12-17)
PROC: 07TP4ZZ Resection of Spleen, Percutaneous Endoscopic Approach (ICD-10-PCS; principal; 2017-12-23)
PROC: 0W3G0ZZ Control Bleeding in Peritoneal Cavity, Open Approach (ICD-10-PCS; 2017-12-23)
PROC: 30233L1 Transfusion of Nonautologous Fresh Plasma into Peripheral Vein, Percutaneous Approach (ICD-10-PCS; 2017-12-23)
PROC: 30233N1 Transfusion of Nonautologous Red Blood Cells into Peripheral Vein, Percutaneous Approach (ICD-10-PCS; 2017-12-23)
PROC: 30233R1 Transfusion of Nonautologous Platelets into Peripheral Vein, Percutaneous Approach (ICD-10-PCS; 2017-12-23)
PROC: 30233K1 Transfusion of Nonautologous Frozen Plasma into Peripheral Vein, Percutaneous Approach (ICD-10-PCS; 2017-12-23)
DX: I81 Portal vein thrombosis (principal); D78.21 Postprocedural hemorrhage of the spleen following a procedure on the spleen; D62 Acute posthemorrhagic anemia; Z87.442 Personal history of urinary calculi; M19.90 Unspecified osteoarthritis, unspecified site; F90.9 Attention-deficit hyperactivity disorder, unspecified type; D73.5 Infarction of spleen; E83.51 Hypocalcemia; F41.9 Anxiety disorder, unspecified; E87.6 Hypokalemia; E87.70 Fluid overload, unspecified; E66.01 Morbid (severe) obesity due to excess calories; E86.0 Dehydration; I95.9 Hypotension, unspecified; Z98.84 Bariatric surgery status
CPT/HCPCS: 36415; 36416; 36430; 36569; 71045; 71046; 74177; 74247; 78582; 80048; 80053; 80061; 80076; 81001; 81003; 81015; 81240; 81241; 82150; 82248; 82306; 82533; 82550; 82553; 82565; 82607; 82746; 82805; 83605; 83690; 83735; 84100; 84425; 84443; 84484; 84703; 85014; 85018; 85025; 85027; 85049; 85240; 85250; 85598; 85610; 85613; 85730; 86146; 86147; 86850; 86900; 86901; 87086; 88305; 90471; 90647; 90648; 90732; 90733; 93005; 93010; 94002; 94003; 96372; A4217; A9540; A9558; C1751; C9113; G0009; G8978-GP-CK; G8979-GP-CI; J0131; J1170; J1200; J1644; J1650; J1720; J1885; J1940; J2001; J2250; J2270; J2370; J2405; J2543; J2550; J2704; J3010; J3411; J3475; J3480; J7050; P9012; P9016; P9035; P9045; P9059; Q0162

== ENCOUNTER 2018-06-18 07:17 | Outpatient (CLI) | payer BC ==
--- NOTE | 2018-06-18 09:49 | CT ---
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 FINDINGS: Comparison is made with the exam of 12/28/2017. The lung bases are clear. No free air, free fluid, or lymphadenopathy is seen in the abdomen or pelv is. No calcified gallstones are noted. Postop changes of gastric bypass surgery are again seen. There is a 3 cm fluid collection noted in t he posterior aspect of the left upper quadrant adjacent to a postoperative loop of bowel. The small bowel loops are not abnormally dilated. Contrast is seen in the small bowel loops and the colon. Th ere is fecal material in the colon and rectum. The patient is post splenectomy. The pancreas, adrenal glands, and kidneys are normal. No hepatic m ass is seen. There is opacification of the main portal vein. No contrast is seen in the SMV. There are vascular calcifications without evidence of aneurysmal dilatation of the abdominal aorta. There are mild degenerative changes in the spine. Uterus and ovaries are present. IMPRESSION: 1. Postop changes with associated 3 cm fluid collection in the left upper quadrant, likely seroma. 2. No evidence of bowel obstruction. 3. Superior mesenteric vein thrombosis. Interval resolution of portal vein thrombosis. POS: [facility]
== END 2018-06-18 07:18 | disposition home or self-care (01) ==
LOC: SCSCT 07:17
PROVIDERS: ATTEND Surgery
DX: I81 Portal vein thrombosis (principal); Z98.890 Other specified postprocedural states
CPT/HCPCS: 74177

== ENCOUNTER 2018-09-26 07:22 | Outpatient (CLI) | payer BC ==
--- NOTE | 2018-09-26 08:59 | MMO ---
Bilateral MAMMO Bilat Screen [facility]. CLINICAL HISTORY: Patient is 43 years old and is seen for screening. The patient has no family history of breast cancer. The patient has no personal history of cancer. VIEWS: The views performed were: bilateral craniocaudal with tomosynthesis and bilateral mediolateral oblique with tomosynthesis. FILMS COMPARED: The present examination has been compared to prior imaging studies performed at [facility] on 12/31/2014 and 09/20/2017. MAMMOGRAM FINDINGS: There are scattered fibroglandular densities. There are no suspicious masses, calcifications or areas of architectural distortion. There are benign appearing calcifications in both breasts. There are no suspicious masses, suspicious calcifications, or new areas of architectural distortion. IMPRESSION: THERE IS NO MAMMOGRAPHIC EVIDENCE OF MALIGNANCY. A ROUTINE FOLLOW-UP MAMMOGRAM IN 1 YEAR IS RECOMMENDED. THE RESULTS OF THIS EXAM WERE SENT TO THE PATIENT. ACR BI-RADS Category 2 - Benign finding MAMMOGRAPHY NOTE: 1. A negative mammogram report should not delay a biopsy if a dominant of clinically suspicious mass is present. 2. Approximately 10% to 15% of breast cancers are not detected by mammography. 3. Adenosis and dense breasts may obscure an underlying neoplasm. Reported by: AYZMIN OROZCO MD Electonically Signed: [id number]
--- NOTE | 2018-09-26 09:49 | MRI ---
MRI Lumbar Spine Noncontrast: HISTORY: Pain. Lumbar radiculopathy. COMPARISON: None FINDINGS: Conus medullaris is normal in morphology and terminates at the L2 level. There is Modic type II degenerative signal alteration of L5-S1. Scattered small Schmorl's nodes are s een at the lower thoracic and upper lumbar spine L1-2:No significant stenosis L2-3:No significant stenosis L3-4:Mild narrowing of central canal due to disc osteophyte. No high-grade foraminal stenosis. L4-5:Central disc protrusion is superimposed upon disc osteophyte with moderate central canal stenosi s. There is crowding of the bilateral traversing L5 nerve roots. There is mild bilateral neural foraminal narrowing. L5-S1:There is a disc osteophyte complex with a small superimposed central disc protrusion effacing c entral aspect of the ventral thecal sac. There is moderate left and minimal right neural foraminal narrowing. IMPRESSION: L4-5 central zone disc protrusion superimposed upon disc osteophyte formation with moderate central c anal stenosis. Additional, multilevel degenerative change, as outlined above. Transcribed Date/Time: 09/26/2018 10:10 AM
== END 2018-09-26 07:23 | disposition home or self-care (01) ==
LOC: BICMRI 07:22
PROVIDERS: ATTEND Internal Medicine
DX: Z12.31 Encounter for screening mammogram for malignant neoplasm of breast (principal); M51.16 Intervertebral disc disorders with radiculopathy, lumbar region; M48.061 Spinal stenosis, lumbar region without neurogenic claudication; M25.78 Osteophyte, vertebrae; M47.26 Other spondylosis with radiculopathy, lumbar region
CPT/HCPCS: 72148; 77063; 77067

== ENCOUNTER 2019-01-31 07:49 | Outpatient (CLI) | payer BC ==
--- NOTE | 2019-01-31 10:55 | CT ---
CT ABDOMEN AND PELVIS WITH IV CONTRAST: Date: 01/31/19 HISTORY: Portal vein and mesenteric vein thrombus after gastric sleeve procedure. This is a follow-up evaluati on. COMPARISON: 06/18/18. FINDINGS: Again noted are postsurgical changes of the stomach, likely related to prior gastric sleeve procedure . There is a fluid collection seen posterior to the stomach in the left upper quadrant on prior exam which measured approximately 3.0 cm, and this measures approximately 2.1 cm in greatest dimension on the current study. No additional fluid collection is identified. There is a fat density area with adj acent minimal stranding again seen within the left mid abdomen measuring approximately 3.2 cm. This p robably represents an area of fat necrosis. This is smaller in size when compared to the prior study, and this measured approximately 3.6 cm on the prior exam. The liver, pancreas, bilateral adrenal glands, and kidneys demonstrate a normal CT appearance. Uterus has a grossly normal appearance for the patient's age. Urinary bladder is decompressed. Loops of small bowel are normal in caliber. Small amount of retained fecal material is seen in the co kia. The appendix is seen in the right upper quadrant and is filled with gas and normal in caliber. Vascular calcifications are seen in the abdominal aorta and involving the iliac arteries. There is en hancement involving the portal vein suggesting patency of the portal vein. The thrombus seen within t he main portal vein on study of 12/28/17 is not visualized on this exam. There was evidence of thromb us in the superior mesenteric vein on the study of 12/28/17. The superior mesenteric vein is not defi nitively visualized on this examination. There is no free fluid, fluid collection, or lymphadenopathy seen in the abdomen or pelvis. Degenerative changes are again seen at the lumbosacral junction involving the lower thoracic spine. There is minimal subcutaneous edema about the upper abdomen anteriorly and anterolaterally, which is nonspecific. IMPRESSION: 1. Postsurgical changes of the stomach are again seen. Fluid collection seen in the left upper quadr ant has slightly diminished in size compared to the prior exam. No new fluid collection or free fluid is seen in the abdomen or pelvis. 2. There is enhancement of the portal veins. There was evidence of thrombus within the right portal vein on prior exam on 12/28/17. However, the superior mesenteric vein is not visualized on this exam and may be atretic secondary to prior thrombus noted on the study of 12/28/17. 3. Interval decrease in area of presumed fat necrosis in the left mid abdomen. 4. No acute findings are seen on this exam. POS: [facility]
[2019-01-31] MEDS ORDERED: Iopamidol-370 76% 500 ML 1 ML ONE (16:08)
== END 2019-01-31 07:50 | disposition home or self-care (01) ==
LOC: BICCT 07:49
PROVIDERS: ATTEND Surgery
DX: I81 Portal vein thrombosis (principal); K55.069 Acute infarction of intestine, part and extent unspecified; K65.4 Sclerosing mesenteritis; Z98.890 Other specified postprocedural states
CPT/HCPCS: 74177; Q9967

== ENCOUNTER 2021-01-12 09:51 | Emergency (ER) | payer OTHER, SELFPAY ==
[2021-01-12] MEDS ORDERED: Ibuprofen 200 MG TAB ONE (10:29)
[2021-01-12] MEDS ORDERED: Boostrix 0.5 ML (Tdap) VIAL ONE (10:30)
== END 2021-01-12 11:22 | disposition home or self-care (01) ==
LOC: ERS 09:51
DX: S60.012A Contusion of left thumb without damage to nail, initial encounter (principal); M25.512 Pain in left shoulder; V89.2XXA Person injured in unspecified motor-vehicle accident, traffic, initial encounter; W22.10XA Striking against or struck by unspecified automobile airbag, initial encounter; Y92.410 Unspecified street and highway as the place of occurrence of the external cause; Z23 Encounter for immunization; Z87.442 Personal history of urinary calculi; Z79.01 Long term (current) use of anticoagulants; Z98.84 Bariatric surgery status
CPT/HCPCS: 90471; 90715

== ENCOUNTER 2021-09-07 09:53 | Outpatient (CLI) | payer BC ==
[~2021-09-07 09:53] MED LIST changes: -ISOVUE-370 76%-LOCM 1 ML ONE; +Iopamidol 370 76% 100 ML VIAL ONE
== END 2021-09-07 09:54 | disposition home or self-care (01) ==
LOC: BICCT 09:53
PROVIDERS: ATTEND Internal Medicine
DX: R10.9 Unspecified abdominal pain (principal); G89.29 Other chronic pain; R11.2 Nausea with vomiting, unspecified
CPT/HCPCS: 74177; Q9967

== ENCOUNTER 2021-09-27 10:52 | Outpatient (CLI) | payer BC | END 2021-09-27 10:53 | disposition home or self-care (01) | LOC: BICULT 10:52 | PROVIDERS: ATTEND Internal Medicine | DX: Z12.31 Encounter for screening mammogram for malignant neoplasm of breast (principal); R10.9 Unspecified abdominal pain | CPT/HCPCS: 76705; 77063; 77067 ==

== ENCOUNTER 2022-06-01 17:06 | Emergency (ER) | payer BC ==
[2022-06-01 18:19] LABS: #Basophils 0.1 thou/uL (0.0-0.2); #Eosinphils 0.3 thou/uL (0.0-0.7); #Lymphocytes 3.4 thou/uL (1.20-3.40); #Monocytes 0.6 thou/uL (0.11-0.59); #Neutrophils 4.9 thou/uL (1.40-6.50); %Basophils 1.1 % (0.0-1.0); %Eosinophils 3.1 % (0.0-10.0); %Lymphocytes 36.6 % (21.0-51.0); %Neutrophils 53.2 % (42.0-75.0); Hemoglobin 13.8 g/dL (12.0-16.0); Mean Corpuscular HGB CONC 32.4 g/dL (32.0-36.0); Mean Corpuscular Hemoglobin 30.1 pg (27.0-31.0); Platelet Count 241 10x3/uL (130-400); Red Blood Cell (RBC) Count 4.58 mill/uL (4.20-5.40); White Blood Cell (WBC) Count 9.3 10x3/uL (4.8-10.8)
[2022-06-01 18:43] LABS: ALT (SGPT) 11 U/L (8-55); AST (SGOT) 18 U/L (5-34); Alkaline Phosphatase 59 U/L (40-110); Anion Gap 13 mmol/L (10-20); BUN (Urea Nitrogen) 15 mg/dL (7.0-18.7); Bilirubin, Total 0.4 mg/dL (0.2-1.2); Calc. Creatinine Clearance 0 mL/min (70-130); Calcium 9.5 mg/dL (7.8-10.44); Carbon Dioxide 25 mmol/L (22-29); Chloride 106 mmol/L (98-107); Estimated GFR 81; Globulin 3.3 g/dL (2.4-3.5); Glucose 89 mg/dL (70-105); Lipase 22 U/L (8-78); Potassium 5.6 mmol/L (3.5-5.1); Protein, Total 7.3 g/dL (6.0-8.3); Sodium 138 mmol/L (136-145)
[2022-06-01 20:45] LABS: Anion Gap 17 mmol/L (10-20); BUN (Urea Nitrogen) 14 mg/dL (7.0-18.7); Calc. Creatinine Clearance 0 mL/min (70-130); Carbon Dioxide 24 mmol/L (22-29); Chloride 107 mmol/L (98-107); Estimated GFR 89; Glucose 84 mg/dL (70-105); Potassium 4.1 mmol/L (3.5-5.1); Sodium 144 mmol/L (136-145)
[2022-06-01 20:51] LABS: Troponin I Less than 0.010 ng/mL (< 0.028)
== END 2022-06-01 22:05 | disposition home or self-care (01) ==
LOC: ERS 17:06
DX: R07.89 Other chest pain (principal); R06.02 Shortness of breath
CPT/HCPCS: 36415; 71045; 71275; 80053; 83690; 83880; 84484; 84702; 85025; 93005; 94760

== ENCOUNTER 2023-01-15 15:18 | Outpatient (CLI) | payer BC | END 2023-01-15 15:19 | disposition home or self-care (01) | LOC: BICMAMMO 15:18 | PROVIDERS: ATTEND Internal Medicine | DX: Z12.31 Encounter for screening mammogram for malignant neoplasm of breast (principal) | CPT/HCPCS: 77063; 77067 ==

== ENCOUNTER 2023-08-10 06:55 | Outpatient (CLI) | payer BC | END 2023-08-10 06:56 | disposition home or self-care (01) | LOC: BICULT 06:55 | PROVIDERS: ATTEND Internal Medicine | DX: K82.4 Cholesterolosis of gallbladder (principal) | CPT/HCPCS: 76705 ==

== ENCOUNTER 2024-01-18 13:04 | Outpatient (CLI) | payer BC | END 2024-01-18 13:05 | disposition home or self-care (01) | LOC: BICMAMMO 13:04 | PROVIDERS: ATTEND Internal Medicine | DX: Z12.31 Encounter for screening mammogram for malignant neoplasm of breast (principal) | CPT/HCPCS: 77063; 77067 ==

== ENCOUNTER 2025-02-10 09:10 | Outpatient (CLI) | payer BC | END 2025-02-10 09:11 | disposition home or self-care (01) | LOC: BICMAMMO 09:10 | PROVIDERS: ATTEND Internal Medicine | DX: Z12.31 Encounter for screening mammogram for malignant neoplasm of breast (principal) | CPT/HCPCS: 77063; 77067 ==